=== PATIENT | female | born 1990 | race Caucasian/White ===

== ENCOUNTER 2016-12-14 21:22 | Emergency (ER) | payer SELFPAY ==
[~2016-12-14] VITALS: Ht 152.4 cm; Wt 95.0 kg
[~2016-12-14 21:22] MED LIST: ETON1IMP2 INTRAD
[2016-12-14 21:31] VITALS: TEMP 36.6; Ht 152.4 cm; Wt 95.0 kg
[2016-12-14] MEDS ORDERED: NAPROXEN 250 MG TAB PO STA (21:39)
[2016-12-14] MEDS ORDERED: CLB/200 PO (21:46)
[2016-12-14] MEDS ORDERED: LEVOIUD INT UTER (21:49)
--- NOTE | 2016-12-14 22:12 | DIAGNOSTIC IMAGING REPORT ---
LEFT KNEE 3 VIEWS CLINICAL HISTORY: anterior pain pain COMPARISON: None. DISCUSSION: The bones and joint spaces appear intact. There is no evidence of fracture, dislocation or bony disease. There is no evidence for soft tissue swelling. IMPRESSION: Negative study. Electronically signed by: Keith Arciniega M.D. 12/14/2016 10:10 PM Dictated Date/Time: 12/14/2016 10:10 PM
[2016-12-14] MEDS ORDERED: NAPR-1169 PO (22:41)
--- NOTE | 2016-12-14 22:41 | EMERGENCY ROOM VISIT NOTE ---
ED Visit Note First contact with patient: 21:36 Chief Complaint: LEFT Knee Pain History of Present Illness: This patient is a 26-year-old female who presents to the emergency Department for evaluation of her LEFT-sided knee pain. She reports that she was moving a love seat tonight when she felt a "pop" in her knee. She reports that she was doing fine until she stood up to change her child and felt an decreasing pain behind the knee. She has increasing pain with ambulation. She reports increasing pain with a bleeding up-and-down steps. The patient reports a history of ligament injury of this affected knee in the past. She rates her current discomfort as an 8/10. She denies any associated hip pain, low back pain, ankle pain, or foot pain. Medications: Reviewed and discussed with the patient. Allergies: No known allergies. PMH: As above. SHx: Patient is a 26-year-old female who lives locally. ROS: All pertinent positive and negative review of systems are appropriately documented in the History of Present Illness. Physical Exam: VITAL SIGNS - Vital signs and nursing notes were reviewed. GENERAL - 26-year-old female appearing her stated age and in noticeable discomfort throughout the exam. MUSCULOSKELETAL - LEFT knee without erythema, edema, and ecchymosis. Subjective tenderness to palpation appreciated over the to the anterior surface of the LEFT knee. +4/5 strength appreciated LEFT versus right secondary to patient discomfort. No posterior sag sign. RANGE OF MOTION: Greater than 100 Flexion with 0 Extension. PATELLAR APPREHENSION TEST: Unremarkable. VARUS/VALGUS STRESS: Unremarkable. MARYURI'S TEST: Without guarding. Strong Endpoint. ANTERIOR/POSTERIOR DRAWER TEST: Without guarding. Strong endpoint. Aaron TEST: No catching, popping, or snapping. NEUROLOGIC/VASCULAR - Neurovascularly intact distally with +3/5 dorsalis pedis pulses palpated bilaterally. Normal sensation to light and sharp touch appreciated distally. IMAGING: LEFT KNEE 3 VIEWS CLINICAL HISTORY: anterior pain pain COMPARISON: None. DISCUSSION: The bones and joint spaces appear intact. There is no evidence of fracture, dislocation or bony disease. There is no evidence for soft tissue swelling. IMPRESSION: Negative study. ED Course: Patient was seen and evaluated by myself. Patient was provided an ice pack for comfort. Patient was provided Naproxen for their complaint of pain. X-rays were obtained of the affected knee. Imaging results as above. Images were discussed and reviewed with the patient who acknowledges understanding. Patient was provided Crutches for their comfort. Patient will utilize yvyu-lof-htxocrp medication for pain control at home. Patient educated on worrisome symptoms for return visit to the emergency department. Patient with follow-up with their primary care provided in 4-5 days if their symptoms are not improving. Patient discharged to home in good condition. Impression: LEFT Knee Pain - Patellofemoral Syndrome Discharge Instructions: You have been treated in the Emergency Department for Knee Pain. You have been prescribed Naprosyn (naproxen). This is an anti-inflammatory medication used to help decrease your symptoms and improve your pain. Please take this medication as prescribed. It is best to take this medication with food. Please to not take this antibiotic with other NSAIDS including: Ibuprofen , Advil, Motrin, Aspirin, Aleve, Celebrex, etc. For pain control, you can use the following ovey-tio-omwjwev medicines (if >12 yo): - Regular strength (325mg/tab) Tylenol (acetaminophen) 2 tabs every 4-6 hours as needed. Do not exceed 12 tablets in a 24 hour period. Avoid taking more than 4 grams (4000 mg) of Tylenol per day. This includes any other sources of acetaminophen you may take on a regular basis. If this is a recent injury (<24 hrs), ice can be applied to the area of pain for the first 3 days to help decrease pain and inflammation. Ice massages can be performed by freezing water in a paper cup, peeling back the cup to expose the ice and then massaging over the affected area. Use the crutches for comfort for the next 2-3 days until you're able to walk without a limp. Follow-up with your orthopedic surgeon if your symptoms are not improved over the next 4-5 days. Return to the Emergency Department if your current symptoms worsen despite treatment course outlined above. Problem List Medical Problems: (1) Cornea abrasion Status: Resolved (2) Pyelonephritis complicating , antepartum Status: Resolved Current/Historical Medications Scheduled Celecoxib (CeleBREX), 200 MG PO DAILY Levonorgestrel (Iud) (Mirena), 20 MCG INT UTER CONTINOUS Naproxen (Naprosyn), 500 MG PO BID Allergies Coded Allergies: No Known Allergies (Unverified , 11/13/15) Vital Signs Date Time Temp Pulse Resp B/P Pulse Ox O2 Delivery O2 Flow Rate FiO2 12/14/16 22:50 59 16 109/72 99 Room Air 12/14/16 21:31 36.6 69 18 147/82 98 Room Air Medications Administered Medications (Trade) Dose Ordered Sig/Tani Route Start Time Stop Time Status Last Admin Dose Admin Naproxen (Naprosyn Tab) 500 mg NOW STAT PO 12/14/16 21:39 12/14/16 21:40 DC 12/14/16 21:51 500 MG Departure Information Impression Primary Impression: Knee pain Additional Impression: Patellofemoral syndrome Dispostion Home / Self-Care Condition GOOD Prescriptions Naproxen (Naprosyn) 500 Mg Tab 500 MG PO BID for 10 Days, #20 TAB Prov: Vickey Arce, JACKY 12/14/16 Referrals Sofia Shelton P.A. (PCP) Patient Instructions My [facility] Additional Instructions You have been treated in the Emergency Department for Knee Pain. You have been prescribed Naprosyn (naproxen). This is an anti-inflammatory medication used to help decrease your symptoms and improve your pain. Please take this medication as prescribed. It is best to take this medication with food. Please to not take this antibiotic with other NSAIDS including: Ibuprofen , Advil, Motrin, Aspirin, Aleve, Celebrex, etc. For pain control, you can use the following gelq-kzs-nmsgzjk medicines (if >12 yo): - Regular strength (325mg/tab) Tylenol (acetaminophen) 2 tabs every 4-6 hours as needed. Do not exceed 12 tablets in a 24 hour period. Avoid taking more than 4 grams (4000 mg) of Tylenol per day. This includes any other sources of acetaminophen you may take on a regular basis. If this is a recent injury (<24 hrs), ice can be applied to the area of pain for the first 3 days to help decrease pain and inflammation. Ice massages can be performed by freezing water in a paper cup, peeling back the cup to expose the ice and then massaging over the affected area. Use the crutches for comfort for the next 2-3 days until you're able to walk without a limp. Follow-up with your orthopedic surgeon if your symptoms are not improved over the next 4-5 days. Return to the Emergency Department if your current symptoms worsen despite treatment course outlined above. Problem Qualifiers Primary Impression: Knee pain Laterality: left Chronicity: acute Qualified Codes: M25.562 - Pain in left knee Additional Impression: Patellofemoral syndrome Laterality: left Qualified Codes: M22.2X2 - Patellofemoral disorders, left knee
[2016-12-14 22:50] VITALS: BP 109/72; PULSE 59; O2SAT 99
== END 2016-12-14 22:59 | disposition home or self-care (01) ==
LOC: C.EDB 21:24 → C.EDD 22:59
DX: M25.562 Pain in left knee (principal); M22.2X2 Patellofemoral disorders, left knee

== ENCOUNTER 2017-03-19 20:58 | Emergency (ER) | payer SELFPAY ==
[~2017-03-19] VITALS: Ht 152.4 cm; Wt 82.0 kg
[~2017-03-19 20:58] MED LIST changes: +CLB/200 PO; -ETON1IMP2 INTRAD; +LEVOIUD INT UTER
[2017-03-19 21:01] VITALS: Ht 152.4 cm; Wt 82.0 kg
[2017-03-19] MEDS ORDERED: ACET-1256 PO (21:23)
[2017-03-19] MEDS ORDERED: OXYCODONE/ACETAMINOPHEN 5-325 TAB PO STA (21:31)
[2017-03-19] MEDS ORDERED: IBUPROFEN 600 MG TAB PO STA (21:31)
[2017-03-19] MEDS ORDERED: PERCOCET HOME PACK PO ONE (21:45)
--- NOTE | 2017-03-19 22:17 | EMERGENCY ROOM VISIT NOTE ---
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 She heard a pop. She felt excruciating pain afterwards. She is unable to bear weight on the leg. She took extra strength Tylenol with minimal relief. She denies any previous injury to this knee. REVIEW OF SYSTEMS: A 6 system review of systems was completed with positives and pertinent negatives listed in the HPI. ALLERGIES: No known drug allergies MEDICATIONS: Medication list reviewed with patient PMH: Otherwise healthy SOCIAL HISTORY: She does not smoke. Denies alcohol and illicit drug use. PHYSICAL EXAM: Vital Signs: Reviewed Nurse's notes, vital signs stable. GENERAL : 26-year-old female, no acute distress, but appears in pain, well-developed, well-nourished. MENTAL STATUS: Alert, oriented to person place and time, and cooperative. MUSCULOSKELETAL: The right knee is mildly swollen. There is no ecchymosis. There is a joint effusion present. The patient is tender to palpation over the medial aspect of the knee. There is no joint line tenderness. The patella not subluxate. Range of motion is limited secondary to pain. Strength of the quads and hamstrings is 5/5. Shannon's and Anterior Drawer tests are negative. There is severe pain with varus and valgus stressing. The foot and toes are warm and well-perfused. Dorsalis pedis pulse 2+. Sensation to pain and light touch is intact. Capillary refill less than 2 seconds. EMERGENCY DEPARTMENT COURSE: I examined the patient. She was given Percocet for pain. X-rays of the right knee were reviewed Patient: DEIDRA STARR Address1: [address] [place] [address] Rec: [id number] Address2: [facility] ID: [id number] [facility] Zip: [place] [address] Date: 1990 Sex: F Room/Bed: Ref Phy: Sofia Shelton,P.A. SC: THALIA Att Phy: Report #: [id number] Mariela Phy: Sofia SheltonP.ARukhsana Test: KN3 Admit Phy: Circular Distributor: HEATH Interpreting Phy: Keith Arciniega M.D. Diagnosis: R KNEE PAIN Ordering Phy: uJlieta Neumann PA-C Service Date: 03/19/17 Admit Date: 03/19/17 MNE: [id number] CONF: DICTATED BY: Keith Arciniega M.D.]] CC: Ronal Handy, Sofia Virgen P.A. Urban, Angela P., PA-C Endcc: [~ rep ct add3]] RIGHT KNEE 3 VIEWS CLINICAL HISTORY: r knee pain Right pain COMPARISON: None. DISCUSSION: The bones and joint spaces appear intact. There is no evidence of fracture, dislocation or bony disease. There is no evidence for soft tissue swelling. IMPRESSION: Negative study. The above report was generated using voice recognition software. It may contain grammatical, syntax or spelling errors. Electronically signed by: Keith Arciniega M.D. 03/19/2017 10:18 PM Dictated Date/Time: 03/19/2017 10:18 PM The status of this report is Signed. Draft = Not yet reviewed or approved by Radiologist. Signed = Reviewed and approved by Radiologist. <AttendingPhy></AttendingPhy> <FamilyPhy>Sofia SheltonPCindi</FamilyPhy> < PrimaryPhy>Sofia Shelton P.A.</PrimaryPhy> <UnitNumber>[id number]</UnitNumber > <VisitNumber>[id number]</VisitNumber> <PatientName>DEIDRA STARR</ PatientName> <DateOfBirth>1990</DateOfBirth> <Location>[facility]</Location> < ServiceDate>03/19/17</ServiceDate> <MNE>ESINDI</MNE> <OrderingPhy>Julieta Neumann PA-C</OrderingPhy> <OrderingPhyMNE>f rep ord mne</OrderingPhyMNE> < DictatingPhyMNE>f rep dict mne</DictatingPhyMNE> <CCListMNE>f rep ct mne</ CCListMNE> <AdmittingPhyMNE>f pt admit dr brown</AdmittingPhyMNE> <AttendingPhyMNE >f pt attend dr brown</AttendingPhyMNE> <ConsultingPhyMNE>f pt consult dr brown</ConsultingPhyMNE> <FamilyPhyMNE>f pt fam dr brown</FamilyPhyMNE> <OtherPhyMNE>f pt other dr brown</OtherPhyMNE> < PrimaryPhyMNE>f pt prim care dr brown</PrimaryPhyMNE> <ReferringPhyMNE>f pt referring dr brown</ReferringPhyMNE> The patient was placed in a knee immobilizer under my direction and the position was satisfactory. The patient was instructed on the use of crutches. The patient was discharged home in good condition. DIAGNOSIS: Right knee sprain DISCHARGE INSTRUCTIONS: Ice and elevate knee for swelling and pain. Wear knee immobilizer when up and about. Use crutches - minimal weight on foot. Ibuprofen 800 mg and/or Tylenol 1000 mg every 8 hours. You may also alternate these medications for more effective pain relief: Ibuprofen --4 HRS--> Tylenol --4 HRS--> ibuprofen --4 HRS--> Tylenol .... Please follow up with the orthopedic doctor if there is no improvement within the next 5-7 days Return to the emergency department with any new or worsening symptoms such as severe pain
[2017-03-19] MEDS ORDERED: OXYC-57 PO (22:18)
--- NOTE | 2017-03-19 22:20 | DIAGNOSTIC IMAGING REPORT ---
RIGHT KNEE 3 VIEWS CLINICAL HISTORY: r knee pain Right pain COMPARISON: None. DISCUSSION: The bones and joint spaces appear intact. There is no evidence of fracture, dislocation or bony disease. There is no evidence for soft tissue swelling. IMPRESSION: Negative study. The above report was generated using voice recognition software. It may contain grammatical, syntax or spelling errors. Electronically signed by: Keith Arciniega M.D. 03/19/2017 10:18 PM Dictated Date/Time: 03/19/2017 10:18 PM
[2017-03-19 22:48] VITALS: BP 101/66; PULSE 71; TEMP 36.9; O2SAT 96
== END 2017-03-19 22:48 | disposition home or self-care (01) ==
LOC: C.EDB 20:58 → C.EDD 22:48
DX: S83.91XA Sprain of unspecified site of right knee, initial encounter (principal); X50.1XXA Overexertion from prolonged static or awkward postures, initial encounter; Y93.F9 Activity, other caregiving; Y99.0 Civilian activity done for income or pay

== ENCOUNTER 2017-05-10 23:13 | Emergency (ER) | payer SELFPAY ==
[~2017-05-10] VITALS: Ht 157.5 cm; Wt 101.1 kg
[~2017-05-10 23:13] MED LIST changes: +ACET-1256 PO; +OXYC-57 PO
[2017-05-10 23:21] VITALS: TEMP 36.5; Ht 157.5 cm; Wt 101.1 kg
[2017-05-10] MEDS ORDERED: SODIUM CHLORIDE 0.9% 1000ML 1,000 ML IV STA ×2 (23:28)
[2017-05-10] MEDS ORDERED: ONDANSETRON INJ 2 MG/ML 2 ML VIAL IV STA (23:28)
[2017-05-10 23:41] VITALS: O2SAT 97
[2017-05-10] MEDS ORDERED: OPTIRAY 320 IV PRN (23:45)
[2017-05-10 23:53] LABS: BASO % 0.4 %; BASO ABS # 0.05 K/uL (0-0.2); COMPLETE YES; EOS % 1.9 %; IG% 0.4 %; LYMPH % 25.1 %; LYMPH ABS # 3.42 K/uL (1.2-3.4); MEAN CELL VOLUME 91.7 fL (80-100); MEAN CORPUSCULAR HEMOGLOBIN 31.7 pg (25-34); MEAN CORPUSCULAR HGB CONC 34.5 g/dl (32-36); MEAN PLATELET VOLUME 9.8 fL (7.4-10.4); MONO % 8.7 %; NEUT % 63.5 %; PLATELET COUNT 359 K/uL (130-400); RED BLOOD COUNT 4.58 M/uL (4.2-5.4); WHITE BLOOD COUNT 13.61 K/uL (4.8-10.8)
[2017-05-10 23:58] LABS: URINE APPEARANCE CLEAR (CLEAR); URINE BILIRUBIN NEG (NEG); URINE COLOR YELLOW; URINE EPITHELIAL CELL AUTO >30 /lpf (0-5); URINE NITRITE NEG (NEG); URINE PH 6.5 (4.5-7.5); URINE SPECIFIC GRAVITY 1.014 (1.000-1.030); UROBILINOGEN NEG (NEG); ZZUR CULT IF INDIC CLEAN CATCH NO
[2017-05-11] LABS: MANUAL MICROSCOPIC REQUIRED? NO; REVIEW REQ? YES
[2017-05-11 00:20] LABS: ALKALINE PHOSPHATASE 72 U/L (45-117); ALT/SGPT 20 U/L (12-78); AST/SGOT 18 U/L (15-37); BLOOD UREA NITROGEN 8 mg/dl (7-18); BUN/CREATININE RATIO 9.9 (10-20); CALCIUM 9.6 mg/dl (8.5-10.1); CARBON DIOXIDE 29 mmol/L (21-32); CHLORIDE 106 mmol/L (98-107); CREATININE 0.85 mg/dl (0.60-1.20); GLUCOSE 86 mg/dl (70-99); POTASSIUM 3.8 mmol/L (3.5-5.1); SODIUM 140 mmol/L (136-145)
[2017-05-11 00:22] LABS: PREG INTERNAL NEGATIVE QC NEG CLEAR BACKGROUND; PREG INTERNAL POSITIVE QC POS CONTROL LINE
[2017-05-11] MEDS ORDERED: METOCLOPRAMIDE HCL INJ 5 MG/ML 2 ML VIAL IV STA (03:36)
[2017-05-11] MEDS ORDERED: DiphenhydrAMINE HCL 50 MG/ML VIAL IV STA (03:36)
[2017-05-11] MEDS ORDERED: KETOROLAC TROMETHAMINE 30 MG/ML VIAL IV STA (03:36)
[2017-05-11 06:00] VITALS: BP 115/50; PULSE 55; O2SAT 96
[2017-05-11] MEDS ORDERED: ONDANSETRON HOME PACK 4MG OD TAB PO ONE (06:15)
--- NOTE | 2017-05-11 06:20 | EMERGENCY ROOM VISIT NOTE ---
History First contact with patient: 23:26 Chief Complaint: ABDOMINAL PAIN Stated Complaint: RT LOWER ABDOMEN PAIN History of Present Illness The patient is a 27 year old female who presents to the Emergency Room with complaints of right lower quadrant right flank pain for the past 3 days that is steadily getting worse currently 6 out of 10. Described as aching. Nothing makes it better or worse. No history of similar symptoms in the past. Patient has an IUD. Patient denies chest pain, dyspnea, nausea, vomiting, diarrhea, urinary symptoms, vaginal itching or discharge. She does not feel at risk for STI's. No history kidney stones. Review of Systems See HPI for pertinent positives & negatives. A total of 10 systems reviewed and were otherwise negative. Past Medical/Surgical History Medical Problems: (1) Cornea abrasion (2) Pyelonephritis complicating , antepartum Family History FH: HTN (hypertension) FH: cancer FH: diabetes mellitus FH: kidney disease FH: seizures Social History Smoking Status: Never Smoker Drug Use: none Marital Status: single Housing Status: lives with family Occupation Status: employed Current/Historical Medications Scheduled Levonorgestrel (Iud) (Mirena), 20 MCG INT UTER CONTINOUS Physical Exam Vital Signs Date Time Temp Pulse Resp B/P (MAP) Pulse Ox O2 Delivery O2 Flow Rate FiO2 05/11/17 06:00 55 20 115/50 96 Room Air 05/11/17 03:46 52 20 113/64 97 Room Air 05/11/17 03:26 55 05/11/17 02:12 55 20 121/74 96 Room Air 05/11/17 00:48 54 20 121/73 96 Room Air 05/10/17 23:53 69 05/10/17 23:41 97 Room Air 05/10/17 23:21 36.5 59 18 123/84 93 Room Air Physical Exam VITALS: Vitals are noted on the nurse's note and reviewed by myself. Vital signs stable. GENERAL: Pleasant female, in no acute distress, nondiaphoretic, well-developed well-nourished. SKIN: The skin was without rashes, erythema, edema, or bruising. There is no tenting of the skin. Capillary reflex less than 2 seconds. HEAD: Normocephalic atraumatic. EARS: External auditory canals clear, tympanic membranes pearly odom without erythema or effusion bilaterally. EYES: Pupils equal round and reactive to light and accommodation. Conjunctivae without injection, sclerae without icterus. Extraocular movements intact. NOSE: Patent, turbinates without inflammation or discharge. MOUTH: Mucous membranes moist. Pharynx without erythema or exudate. Uvula midline. Airway patent. Tongue does not deviate. NECK: Supple without nuchal rigidity. No lymphadenopathy. No thyromegaly. Cervical spine is nontender. No JVD. HEART: Regular rate and rhythm without murmurs gallops or rubs. LUNGS: Clear to auscultation bilaterally without wheezes, rales or rhonchi. No dullness to percussion. No retractions or accessory muscle use. ABDOMEN: Positive bowel sounds x 4. Normal tympanic percussion. Soft, tender to palpation right lower quadrant, right CVA tenderness,, without masses or organomegaly. Samaniego sign negative. No guarding or rebound tenderness. MUSCULOSKELETAL: No muscle atrophy, erythema, or edema noted. NEURO: Patient was alert and oriented to person place and time. Normal sensation to light and sharp touch. No focal neurological deficits. Medical Decision & Procedures Laboratory Results 05/10/17 23:35 Red Blood Count 4.58, Mean Corpuscular Volume 91.7, Mean Corpuscular Hemoglobin 31.7, Mean Corpuscular Hemoglobin Concent 34.5, Mean Platelet Volume 9.8, Neutrophils (%) (Auto) 63.5, Lymphocytes (%) (Auto) 25.1, Monocytes (%) (Auto) 8.7, Eosinophils (%) (Auto) 1.9, Basophils (%) (Auto) 0.4, Neutrophils # (Auto) 8.64, Lymphocytes # (Auto) 3.42, Monocytes # (Auto) 1.18, Eosinophils # (Auto) 0.26, Basophils # (Auto) 0.05 05/10/17 23:35 Test 05/10/17 23:35 White Blood Count 13.61 K/uL (4.8-10.8) Red Blood Count 4.58 M/uL (4.2-5.4) Hemoglobin 14.5 g/dL (12.0-16.0) Hematocrit 42.0 % (37-47) Mean Corpuscular Volume 91.7 fL (80-100) Mean Corpuscular Hemoglobin 31.7 pg (25-34) Mean Corpuscular Hemoglobin Concent 34.5 g/dl (32-36) Platelet Count 359 K/uL (130-400) Mean Platelet Volume 9.8 fL (7.4-10.4) Neutrophils (%) (Auto) 63.5 % Lymphocytes (%) (Auto) 25.1 % Monocytes (%) (Auto) 8.7 % Eosinophils (%) (Auto) 1.9 % Basophils (%) (Auto) 0.4 % Neutrophils # (Auto) 8.64 K/uL (1.4-6.5) Lymphocytes # (Auto) 3.42 K/uL (1.2-3.4) Monocytes # (Auto) 1.18 K/uL (0.11-0.59) Eosinophils # (Auto) 0.26 K/uL (0-0.5) Basophils # (Auto) 0.05 K/uL (0-0.2) RDW Standard Deviation 43.8 fL (36.4-46.3) RDW Coefficient of Variation 13.0 % (11.5-14.5) Immature Granulocyte % (Auto) 0.4 % Immature Granulocyte # (Auto) 0.06 K/uL (0.00-0.02) Urine Color YELLOW Urine Appearance CLEAR (CLEAR) Urine pH 6.5 (4.5-7.5) Urine Specific Irwin 1.014 (1.000-1.030) Urine Protein NEG (NEG) Urine Glucose (UA) NEG (NEG) Urine Ketones NEG (NEG) Urine Occult Blood 1+ (NEG) Urine Nitrite NEG (NEG) Urine Bilirubin NEG (NEG) Urine Urobilinogen NEG (NEG) Urine Leukocyte Esterase NEG (NEG) Urine WBC (Auto) 1-5 /hpf (0-5) Urine RBC (Auto) 5-10 /hpf (0-4) Urine Hyaline Casts (Auto) 0 /lpf (0-5) Urine Epithelial Cells (Auto) >30 /lpf (0-5) Urine Bacteria (Auto) NEG (NEG) Anion Gap 5.0 mmol/L (3-11) Est Creatinine Clear Calc Drug Dose 112.6 ml/min Estimated GFR () 110.4 Estimated GFR (Non- 95.2 BUN/Creatinine Ratio 9.9 (10-20) Calcium Level 9.6 mg/dl (8.5-10.1) Total Bilirubin 0.3 mg/dl (0.2-1) Direct Bilirubin mg/dl (0-0.2) Aspartate Amino Transf (AST/SGOT) 18 U/L (15-37) Alanine Aminotransferase (ALT/SGPT) 20 U/L (12-78) Alkaline Phosphatase 72 U/L (45-117) Total Protein 7.5 gm/dl (6.4-8.2) Albumin 3.6 gm/dl (3.4-5.0) Human Chorionic Gonadotropin, Qual NEG (NEG) Chemistry Specimen Hemolysis Medications Administered Medications (Trade) Dose Ordered Sig/Tani Route Start Time Stop Time Status Last Admin Dose Admin Sodium Chloride 1,000 ml @ 999 mls/hr Q1H1M STAT IV 05/10/17 23:28 05/11/17 00:28 DC 05/10/17 23:38 999 MLS/HR Sodium Chloride 1,000 ml @ 125 mls/hr Q8H STAT IV 05/10/17 23:28 05/11/17 07:27 05/10/17 23:38 125 MLS/HR Ondansetron HCl (Zofran Inj) 4 mg NOW STAT IV 05/10/17 23:28 05/10/17 23:29 DC 05/10/17 23:38 4 MG Ketorolac Tromethamine (Toradol Inj) 30 mg NOW STAT IV 05/11/17 03:36 05/11/17 03:38 DC 05/11/17 03:44 30 MG Metoclopramide HCl (Reglan Inj) 10 mg NOW STAT IV 05/11/17 03:36 05/11/17 03:38 DC 05/11/17 03:44 10 MG Diphenhydramine HCl (Benadryl Inj) 12.5 mg NOW STAT IV 05/11/17 03:36 05/11/17 03:38 DC 05/11/17 03:44 12.5 MG ED Course Prior records/ancillary studies reviewed. Triage Nursing notes reviewed. Additional history obtained from family. The patient's history was concerning for abdominal pain. Differential diagnosis: Etiologies such as appendicitis, diverticulitis, PUD, biliary pathology, UTI, pancreatitis, obstruction, mesenteric ischemia, aortic pathology, infections, inflammatory bowel disease, renal colic, as well as others were entertained. Physical examination findings: As above. ER treatment provided: Zofran, morphine, IV fluids On reassessment the patient felt better. Diagnostics interpreted by me: The labs revealed leukocytosis. Negative hCG. Negative urine Imaging studies: US PELVIC/ENDOVAG: IUD in place. No evidence of torsion. 3.6 cm right ovarian cyst. Radiologist: Paul Prescott M.D. CT was concerning for right ovarian cyst so ultrasound was ordered to verify blood flow and rule out torsion Exam and history seem consistent with right ovarian cyst. No torsion on ultrasound. Patient was advised to follow-up with OB in a few days and repeat pelvic ultrasound in 6 weeks for resolution of cyst. She is advised to return to the ER immediately for severe pain, vomiting, fevers, worsening signs or symptoms or as needed. Patient was neurovascularly and neurologically intact. She is well-appearing. No signs of UTI. By the evaluation outlined above emergent etiologies such as appendicitis, diverticulitis, PUD, biliary pathology, UTI, pancreatitis, obstruction, mesenteric ischemia, aortic pathology, infections, inflammatory bowel disease, renal colic, as well as others were deemed relatively unlikely. The pt informed about the findings as listed above. All questions were answered and pleased with the treatment. Return instructions were outlined and the patient was discharged in stable condition. Referral: The patient was referred back to their primary care physician and [facility] [employer] [facility] for follow-up in 2 to 3 days for a recheck of the current condition. case reviewed with my Attending. Medical Decision As above Medication Reconcilliation Current Medication List: was personally reviewed by me Blood Pressure Screening Patient's blood pressure: Normal blood pressure Impression Primary Impression: Right ovarian cyst Departure Information Dispostion Home / Self-Care Condition GOOD Referrals Sofia Shelton,P.A. (PCP) Patient Instructions My [facility] Additional Instructions DO NOT drive, drink alcohol, operate machinery, or perform dangerous activities today. You were given medications in the ER that can affect your ability to safely function or operate a vehicle. Repeat pelvic ultrasound in 6 weeks for resolution of cyst. Ibuprofen(Motrin, Advil) may be used for fever or pain. Use 600mg every six hours as needed. Take with food. Avoid using more than 2400mg in a 24 hour period. Do not use 2400mg per day for more than three consecutive days without physician direction. Prolonged inappropriate use can lead to stomach upset or ulcers. (AND/OR) Acetaminophen(Tylenol) may be used for fever or pain. Use 1000mg every six hours as needed. Avoid using more than 4000mg in a 24 hour period. Zofran 4mg: Take one every six hours as needed for nausea. Avoid alcohol, operating machinery or dangerous equipment, working on ladders or roofs, DRIVING , or situations where being under the influence may be dangerous. Rest and drink plenty of fluids as tolerated. Slow sips of water or sports drinks are recommended instead of large amounts all at once. Continue current medications. Return to the ER immediately for worsening or persistent abdominal pain, vomiting, fevers, chest pains, difficulty breathing, black or bloody stools, worsening of your condition, or as needed. Follow up with [facility] in 2-3 days for a recheck of your current condition.
--- NOTE | 2017-05-11 07:20 | DIAGNOSTIC IMAGING REPORT ---
CT OF THE ABDOMEN AND PELVIS WITH CONTRAST CLINICAL HISTORY: Right lower quadrant/right flank pain. COMPARISON STUDY: CT of the abdomen and pelvis and pelvic ultrasound September 13, 2015. TECHNIQUE: Following IV administration of 92 mL of Optiray-320, axial images of the abdomen and pelvis were obtained from the lung bases to the proximal femurs. Images were reviewed in the axial, sagittal, and coronal planes. IV contrast was administered without complication. A dose lowering technique was utilized adhering to the principles of ALARA. CT DOSE: 1017.87 mGy.cm FINDINGS: The liver, spleen, adrenal glands, kidneys and pancreas are normal. There is no biliary or pancreatic ductal dilatation. Caliber and wall thickness of small and large bowel are normal. The appendix is normal. A 4.4 cm water attenuation right ovarian lesion likely reflects a cyst. Intrauterine device is in place. There is no free fluid. There is no abscess or adenopathy. No suspicious skeletal lesions are present. Major vasculature of the abdomen and pelvis is patent. IMPRESSION: 1. Normal appendix. No bowel obstruction. 2. 4.4 cm right ovarian cyst. 3. Intrauterine device in place. Electronically signed by: Carlos Lange M.D. 05/11/2017 7:19 AM Dictated Date/Time: 05/11/2017 7:15 AM
--- NOTE | 2017-05-11 07:22 | DIAGNOSTIC IMAGING REPORT ---
PELVIC ULTRASOUND CLINICAL HISTORY: Ovarian cyst on ultrasound. Right lower quadrant pain. COMPARISON STUDY: Pelvic ultrasound September 13, [address] of the abdomen and pelvis May 11, 2017. TECHNIQUE: Transabdominal and transvaginal sonography of the pelvis was performed. FINDINGS: Intrauterine device is appropriately positioned. Uterus measures 10 x 4.2 x 5.4 cm. There is trace fluid within the endometrial canal. Endometrium measures 4 mm in thickness. The left ovary is normal, measuring 2.5 x 1.6 x 2.5 cm. The right ovary measures 4.4 x 3.7 x 3.9 cm and contains a 3.6 cm cyst. Flow is identified within each ovary. IMPRESSION: 1. 3.6 cm right ovarian cyst. 2. No sonographic evidence of ovarian torsion. 3. Intrauterine device in place. Electronically signed by: Carlos Lange M.D. 05/11/2017 7:21 AM Dictated Date/Time: 05/11/2017 7:19 AM
== END 2017-05-11 06:28 | disposition home or self-care (01) ==
LOC: C.EDB 23:13
DX: N83.201 Unspecified ovarian cyst, right side (principal); Z87.440 Personal history of urinary (tract) infections; Z79.899 Other long term (current) drug therapy; Z80.9 Family history of malignant neoplasm, unspecified; Z82.49 Family history of ischemic heart disease and other diseases of the circulatory system; Z83.3 Family history of diabetes mellitus; Z84.1 Family history of disorders of kidney and ureter; Z82.0 Family history of epilepsy and other diseases of the nervous system

== ENCOUNTER 2017-08-01 17:47 | Emergency (ER) | payer SELFPAY ==
[~2017-08-01] VITALS: Ht 152.4 cm; Wt 97.8 kg
[~2017-08-01 17:47] MED LIST changes: -ACET-1256 PO; -CLB/200 PO; -OXYC-57 PO
[2017-08-01 17:49] VITALS: TEMP 37.1; Ht 152.4 cm; Wt 97.8 kg
[2017-08-01] MEDS ORDERED: ONDANSETRON INJ 2 MG/ML 2 ML VIAL IV STA ×2 (17:56→22:30)
[2017-08-01] MEDS ORDERED: CLB/200 PO (18:02)
--- NOTE | 2017-08-01 18:17 | EMERGENCY ROOM VISIT NOTE ---
History Report prepared by Levy: Ana Hillman Under the Supervision of: Stepan DudleyO. First contact with patient: 17:53 Chief Complaint: ABDOMINAL PAIN Stated Complaint: RIGHT SIDE ABD PAIN, VOMITING History of Present Illness The patient is a 27 year old female who presents to the Emergency Room with complaints of a worsening right lower abdominal pain that began at 0230 this morning. She describes her pain as "sharp" and rates it a 9/10 in severity. The patient states that she is also having some lower back pain. She denies any vomiting, diarrhea, fever, painful bowel movements, or taking any pain medication [employer]. The patient also denies any vaginal bleeding or abnormal discharge. The patient notes that she has a history of an ovarian cyst, but denies any history of ovarian torsions. She states her last normal menstrual period was last month. The patient notes that she is on control. She notes she has arthritis in both knees and takes Celebrex daily. Source of History: patient Onset: 0230 Position: abdomen (RLQ) Symptom Intensity: 9/10 Timing: worsening Associated Symptoms: No fevers, No vomiting, No diarrhea Note: The patient also denies any abnormal vaginal bleeding or discharge. Review of Systems See HPI for pertinent positives & negatives. A total of 10 systems reviewed and were otherwise negative. Past Medical & Surgical Medical Problems: (1) Arthritis of both knees (2) Cornea abrasion (3) Pyelonephritis complicating , antepartum Family History FH: HTN (hypertension) FH: cancer FH: diabetes mellitus FH: kidney disease FH: seizures Social History Smoking Status: Never Smoker Drug Use: none Marital Status: single Housing Status: lives with family Occupation Status: employed Current/Historical Medications Scheduled Celecoxib (CeleBREX), 200 MG PO BID Levonorgestrel (Iud) (Mirena), 20 MCG INT UTER CONTINOUS Scheduled PRN Oxycodone Immediate Rel Tab (Roxicodone Ir), 1-2 TAB PO Q4H PRN for Severe Pain Allergies Coded Allergies: No Known Allergies (Unverified , 05/11/17) Physical Exam Vital Signs Date Time Temp Pulse Resp B/P (MAP) Pulse Ox O2 Delivery O2 Flow Rate FiO2 08/02/17 00:27 60 16 106/57 98 Room Air 08/01/17 22:43 60 20 147/93 97 Room Air 08/01/17 22:17 76 08/01/17 21:48 80 20 118/77 97 Room Air 08/01/17 19:52 72 22 142/50 97 08/01/17 19:33 67 08/01/17 18:58 79 20 111/70 96 Room Air 08/01/17 17:49 37.1 65 20 114/76 94 Room Air Physical Exam GENERAL: Patient is awake, alert, somewhat anxious appearing and uncomfortable. EYES: The conjunctivae are clear. The pupils are round and reactive. EARS, NOSE, MOUTH AND THROAT: The nose is without any evidence of any deformity. Mucous membranes are moist tongue is midline NECK: The neck is nontender and supple. RESPIRATORY: Normal respiratory effort is noted there is no evidence of wheezing rhonchi or rales CARDIOVASCULAR: Regular rate and rhythm noted there no murmurs rubs or gallops normal S1 normal S2 GASTROINTESTINAL: Mildly distended but soft. Right lower quadrant tender to palpitation. PELVIS: The Pelvis is stable. No tenderness to palpation is noted. BACK: CVA tenderness to percussion. No midline tenderness or or step-off noted range of motion in flexion extension as well as rotation no signs of muscle spasm noted MUSCULOSKELETAL/EXTREMITIES: There is no evidence of gross deformity full range of motion is noted in the hips and shoulders SKIN: There is no obvious evidence of any rash. There are no petechiae, pallor or cyanosis noted. NEUROLOGIC: Patient is awake alert and oriented x3 Medical Decision & Procedures ER Provider Diagnostic Interpretation: Radiology results as stated below per my review and radiologist interpretation: ABDOMEN AND PELVIS CT WITHOUT CONTRAST CT DOSE: 880.22 mGy.cm HISTORY: right flank pain TECHNIQUE: Multiaxial CT images of the abdomen and pelvis were performed without contrast. A dose lowering technique was utilized adhering to the principles of ALARA. COMPARISON STUDY: Abdomen and pelvis CT 05/11/2017. Pelvic ultrasound 05/11/2017. FINDINGS: The lung bases are clear. No fractures within the visualized osseous structures. The unenhanced liver, gallbladder, pancreas, spleen, adrenal glands, and kidneys are unremarkable. No renal or ureteral stones. No hydronephrosis. No retroperitoneal lymphadenopathy. The intrauterine device is in good position. Normal left ovary. Slight increase in size in the 4.2 x 3.5 cm. This previous measured 3.9 x 3.2 cm. Bladder is not well-distended but appears unremarkable. Suboptimal evaluation for bowel pathology due to the lack of intravenous and oral contrast. However, there is no definite bowel wall thickening or obstruction. Normal appendix. Colonic diverticulosis. IMPRESSION: 1. No definite bowel wall thickening or obstruction. 2. Normal appendix. 3. No renal or ureteral stones. 4. Slight increase in size in the 4.2 cm right ovarian cyst. This is better appreciated on the recent pelvic ultrasound. Electronically signed by: Bandar Gaffney M.D. 08/01/2017 7:14 PM Laboratory Results 08/01/17 18:15 Red Blood Count 4.79, Mean Corpuscular Volume 93.7, Mean Corpuscular Hemoglobin 31.3, Mean Corpuscular Hemoglobin Concent 33.4, Mean Platelet Volume 9.8, Neutrophils (%) (Auto) 70.6, Lymphocytes (%) (Auto) 20.1, Monocytes (%) (Auto) 6.9, Eosinophils (%) (Auto) 1.7, Basophils (%) (Auto) 0.3, Neutrophils # (Auto) 11.48, Lymphocytes # (Auto) 3.26, Monocytes # (Auto) 1.12, Eosinophils # (Auto) 0.27, Basophils # (Auto) 0.05 08/01/17 18:15 Test 08/01/17 18:15 White Blood Count 16.24 K/uL (4.8-10.8) Red Blood Count 4.79 M/uL (4.2-5.4) Hemoglobin 15.0 g/dL (12.0-16.0) Hematocrit 44.9 % (37-47) Mean Corpuscular Volume 93.7 fL (80-100) Mean Corpuscular Hemoglobin 31.3 pg (25-34) Mean Corpuscular Hemoglobin Concent 33.4 g/dl (32-36) Platelet Count 380 K/uL (130-400) Mean Platelet Volume 9.8 fL (7.4-10.4) Neutrophils (%) (Auto) 70.6 % Lymphocytes (%) (Auto) 20.1 % Monocytes (%) (Auto) 6.9 % Eosinophils (%) (Auto) 1.7 % Basophils (%) (Auto) 0.3 % Neutrophils # (Auto) 11.48 K/uL (1.4-6.5) Lymphocytes # (Auto) 3.26 K/uL (1.2-3.4) Monocytes # (Auto) 1.12 K/uL (0.11-0.59) Eosinophils # (Auto) 0.27 K/uL (0-0.5) Basophils # (Auto) 0.05 K/uL (0-0.2) RDW Standard Deviation 44.9 fL (36.4-46.3) RDW Coefficient of Variation 13.1 % (11.5-14.5) Immature Granulocyte % (Auto) 0.4 % Immature Granulocyte # (Auto) 0.06 K/uL (0.00-0.02) Urine Color YELLOW Urine Appearance CLEAR (CLEAR) Urine pH 5.0 (4.5-7.5) Urine Specific Ione 1.022 (1.000-1.030) Urine Protein NEG (NEG) Urine Glucose (UA) NEG (NEG) Urine Ketones TRACE (NEG) Urine Occult Blood 2+ (NEG) Urine Nitrite NEG (NEG) Urine Bilirubin NEG (NEG) Urine Urobilinogen NEG (NEG) Urine Leukocyte Esterase SMALL (NEG) Urine WBC (Auto) 10-30 /hpf (0-5) Urine RBC (Auto) 0-4 /hpf (0-4) Urine Hyaline Casts (Auto) 0 /lpf (0-5) Urine Epithelial Cells (Auto) >30 /lpf (0-5) Urine Bacteria (Auto) 1+ (NEG) Urine Crystals CALCIUM OXALATE (NONE Urine Mucus PRESENT (NONE PRSENT) Anion Gap 9.0 mmol/L (3-11) Est Creatinine Clear Calc Drug Dose 121.9 ml/min Estimated GFR () 130.5 Estimated GFR (Non- 112.6 BUN/Creatinine Ratio 11.0 (10-20) Calcium Level 8.7 mg/dl (8.5-10.1) Total Bilirubin 0.4 mg/dl (0.2-1) Direct Bilirubin < 0.1 mg/dl (0-0.2) Aspartate Amino Transf (AST/SGOT) 13 U/L (15-37) Alanine Aminotransferase (ALT/SGPT) 20 U/L (12-78) Alkaline Phosphatase 61 U/L (45-117) Total Protein 7.9 gm/dl (6.4-8.2) Albumin 3.7 gm/dl (3.4-5.0) Lipase 155 U/L (73-393) Human Chorionic Gonadotropin, Qual NEG (NEG) Laboratory results per my review. Medications Administered Medications (Trade) Dose Ordered Sig/Tani Route Start Time Stop Time Status Last Admin Dose Admin Morphine Sulfate (MoRPHine SULFATE INJ) 4 mg Q15M PRN IV 08/01/17 18:00 08/02/17 00:55 DC 08/01/17 21:47 4 MG Ondansetron HCl (Zofran Inj) 4 mg NOW STAT IV 08/01/17 17:56 08/01/17 17:58 DC 08/01/17 18:43 4 MG Ondansetron HCl (Zofran Inj) 4 mg NOW STAT IV 08/01/17 22:30 08/01/17 22:31 DC 08/01/17 22:43 4 MG Sodium Chloride 1,000 ml @ 999 mls/hr Q1H1M STAT IV 08/01/17 23:21 08/02/17 00:21 DC 08/01/17 23:21 999 MLS/HR ED Course 1755: The patient was evaluated in room A12. A complete history and physical examination were performed. 1756: Ordered Zofran Inj 4mg IV. 1800: Ordered Morphine Sulfate 4mg IV. 5: I reevaluated the patient. She is resting comfortably and awaiting Ultrasound. 2030: This patient is a sign out to Dr. Hubbard at the end of my shift Medical Decision Prior records/ancillary studies reviewed. Triage Nursing notes reviewed. The patient's history was concerning for abdominal pain. Differential diagnosis: Etiologies such as appendicitis, diverticulitis, PUD, biliary pathology, UTI, pancreatitis, obstruction, mesenteric ischemia, aortic pathology, infections, inflammatory bowel disease, renal colic, as well as others were entertained. The patient is a 27-year-old female who presented to the emergency department for evaluation of right-sided pain. The patient had abdominal pain but also suprapubic pain. She had no dysuria or frequency. The urinalysis appeared to show increased white blood cells but I feel this is a poor specimen with increased epithelial cells as well as urinary mucous. I do not feel this represents an infection. The patient was found have an ovarian cyst. This was noted on previous studies in the fall. The cyst appears larger than previous. The patient was treated with IV pain medicine and IV antiemetics. On subsequent reevaluation she was feeling much better but because of the size of the cyst pathology may require an ultrasound to further evaluate the ovarian cyst further. At this time the ultrasound is still pending. The patient was signed out to the evening physician, Dr. Hubbard. Please see his note for final ultrasound report and final disposition. The patient was encouraged to follow- up with her [employer] physician this week. She knows that if the ultrasound does not show any surgical findings she will likely be discharged home to follow-up with the [employer] physician. She was also encouraged to continue using Motrin and Tylenol for pain and return to the emergency department if symptoms change worsen or the need arises. The patient was also made aware that if the ultrasound shows abnormalities which would require gynecologic surgery she would need this immediately. Medication Reconcilliation Current Medication List: was personally reviewed by me Blood Pressure Screening Patient's blood pressure: Normal blood pressure Blood pressure disposition: Did not require urgent referral Impression Primary Impression: Right ovarian cyst Additional Impression: RLQ abdominal pain Scribe Attestation The scribe's documentation has been prepared under my direction and personally reviewed by me in its entirety. I confirm that the note above accurately reflects all work, treatment, procedures, and medical decision making performed by me. Departure Information Dispostion Still a Patient (This patient is a sign out to Dr. Hubbard at the end of my shift) Prescriptions Oxycodone Immediate Rel Tab (ROXICODONE IR) 5 Mg Tab 1-2 TAB PO Q4H Y for Severe Pain, #24 TAB Prov: Ronal Handy, 08/01/17 Referrals Sofia Shelton,P.A. (PCP) Patient Instructions My [facility] Problem Qualifiers
[2017-08-01 18:30] LABS: BASO % 0.3 %; BASO ABS # 0.05 K/uL (0-0.2); COMPLETE YES; EOS % 1.7 %; HEMATOCRIT 44.9 % (37-47); IG% 0.4 %; LYMPH % 20.1 %; LYMPH ABS # 3.26 K/uL (1.2-3.4); MEAN CELL VOLUME 93.7 fL (80-100); MEAN CORPUSCULAR HEMOGLOBIN 31.3 pg (25-34); MEAN CORPUSCULAR HGB CONC 33.4 g/dl (32-36); MEAN PLATELET VOLUME 9.8 fL (7.4-10.4); MONO % 6.9 %; NEUT % 70.6 %; PLATELET COUNT 380 K/uL (130-400); RED BLOOD COUNT 4.79 M/uL (4.2-5.4); WHITE BLOOD COUNT 16.24 K/uL (4.8-10.8)
[2017-08-01] MEDS: MoRPHine SULFATE 4 MG/ML 1 ML CARP\\VIAL IV PRN ×2 (18:44→21:47)
[2017-08-01 18:47] LABS: ALT/SGPT 20 U/L (12-78); AST/SGOT 13 U/L (15-37); BLOOD UREA NITROGEN 8 mg/dl (7-18); CALCIUM 8.7 mg/dl (8.5-10.1); CARBON DIOXIDE 24 mmol/L (21-32); CHLORIDE 105 mmol/L (98-107); CREATININE 0.74 mg/dl (0.60-1.20); GLUCOSE 82 mg/dl (70-99); POTASSIUM 3.5 mmol/L (3.5-5.1); SODIUM 138 mmol/L (136-145)
[2017-08-01 18:50] LABS: ALKALINE PHOSPHATASE 61 U/L (45-117)
[2017-08-01 18:52] LABS: PREG INTERNAL NEGATIVE QC NEG CLEAR BACKGROUND; PREG INTERNAL POSITIVE QC POS CONTROL LINE
--- NOTE | 2017-08-01 19:15 | DIAGNOSTIC IMAGING REPORT ---
ABDOMEN AND PELVIS CT WITHOUT CONTRAST CT DOSE: 880.22 mGy.cm HISTORY: right flank pain TECHNIQUE: Multiaxial CT images of the abdomen and pelvis were performed without contrast. A dose lowering technique was utilized adhering to the principles of ALARA. COMPARISON STUDY: Abdomen and pelvis CT 05/11/2017. Pelvic ultrasound 05/11/2017. FINDINGS: The lung bases are clear. No fractures within the visualized osseous structures. The unenhanced liver, gallbladder, pancreas, spleen, adrenal glands, and kidneys are unremarkable. No renal or ureteral stones. No hydronephrosis. No retroperitoneal lymphadenopathy. The intrauterine device is in good position. Normal left ovary. Slight increase in size in the 4.2 x 3.5 cm. This previous measured 3.9 x 3.2 cm. Bladder is not well-distended but appears unremarkable. Suboptimal evaluation for bowel pathology due to the lack of intravenous and oral contrast. However, there is no definite bowel wall thickening or obstruction. Normal appendix. Colonic diverticulosis. IMPRESSION: 1. No definite bowel wall thickening or obstruction. 2. Normal appendix. 3. No renal or ureteral stones. 4. Slight increase in size in the 4.2 cm right ovarian cyst. This is better appreciated on the recent pelvic ultrasound. Electronically signed by: Bandar Gaffney M.D. 08/01/2017 7:14 PM Dictated Date/Time: 08/01/2017 7:04 PM
[2017-08-01 19:20] LABS: URINE APPEARANCE CLEAR (CLEAR); URINE BILIRUBIN NEG (NEG); URINE COLOR YELLOW; URINE EPITHELIAL CELL AUTO >30 /lpf (0-5); URINE NITRITE NEG (NEG); URINE SPECIFIC GRAVITY 1.022 (1.000-1.030); UROBILINOGEN NEG (NEG)
[2017-08-01 19:21] LABS: MANUAL MICROSCOPIC REQUIRED? NO; REVIEW REQ? YES
[2017-08-01 19:35] LABS: URINE MUCUS PRESENT (NONE PRSENT)
[2017-08-01] MEDS ORDERED: OXYC1TAB3 PO (19:46)
--- NOTE | 2017-08-01 22:08 | DIAGNOSTIC IMAGING REPORT ---
PELVIC ULTRASOUND, TRANSABDOMINAL AND TRANSVAGINAL HISTORY: right sided pelvic pain, ovarian cyst COMPARISON: Abdomen and pelvis CT 08/01/2017. Pelvic ultrasound 05/11/2017. FINDINGS: Uterus: 9.4 x 4.5 x 5.0 cm. Endometrial stripe: 7 mm in thickness. The intrauterine device is in good position. Right ovary: A 4.3 x 4.0 x 3.8 cm cyst. This previously measured 3.6 cm. Normal color flow within the right ovary. Left ovary: Normal in size and demonstrates normal color flow. Miscellaneous:No significant pelvic free fluid. IMPRESSION: 1. Slight increase in size in the 4.3 cm right ovarian cyst. This appears to represent a simple cyst. Pelvic ultrasound follow-up in 2-3 months is recommended to ensure resolution. 2. The intrauterine device is in good position. 3. Normal color flow within the bilateral ovaries. Electronically signed by: Bandar Gaffney M.D. 08/01/2017 10:06 PM Dictated Date/Time: 08/01/2017 10:03 PM
[2017-08-01] MEDS ORDERED: SODIUM CHLORIDE 0.9% 1000ML 1,000 ML IV STA (23:21)
--- NOTE | 2017-08-02 00:08 | EMERGENCY ROOM VISIT NOTE ---
ED Visit Note This patient was signed out to be with Dr. Handy at shift change. At that point , the game plan was if the ultrasound was unremarkable to likely discharge the patient home. She was noted to have a cyst on the right ovary and she's been having pain in that area. She has nothing to suggest appendicitis. She's had no dysuria or trauma. She was seen with a similar cyst several months ago at slightly larger. On my exam, she has no pain in she says is feeling very nauseated from the pain medication she feels. She was given Zofran 4 mg IV and a 1 liter fluid IV and was sipping fluids looks much better at this point I do not suspect torsion. She's been having ongoing issues with this. I discussed this with Dr. Ledbetter and she recommended pain management and they can follow up with her in the office she will need a follow-up ultrasound. She was given a prescription for OxyIR. She should return to the ER if: increasing pain, worsening of symptoms, any new problems or concerns. She was warned that OxyIR could make her drowsy do not take before drinking, driving, working. She was happy with plan and discharged to home.
[2017-08-02 00:27] VITALS: BP 106/57; PULSE 60; O2SAT 98
== END 2017-08-02 00:30 | disposition home or self-care (01) ==
LOC: C.EDB 17:48 → C.EDA 08-02 00:30
DX: N83.201 Unspecified ovarian cyst, right side (principal); R10.31 Right lower quadrant pain; M17.0 Bilateral primary osteoarthritis of knee; Z82.49 Family history of ischemic heart disease and other diseases of the circulatory system; Z83.3 Family history of diabetes mellitus; Z82.0 Family history of epilepsy and other diseases of the nervous system; Z79.899 Other long term (current) drug therapy

== ENCOUNTER 2017-08-22 09:26 | Emergency (ER) | payer SELFPAY ==
[~2017-08-22] VITALS: Ht 152.4 cm; Wt 95.4 kg
[~2017-08-22 09:26] MED LIST changes: +CLB/200 PO; +OXYC1TAB3 PO
[2017-08-22 09:33] VITALS: TEMP 36.6; Ht 152.4 cm; Wt 95.4 kg
[2017-08-22] MEDS ORDERED: XYLOCAINE 1%/SOD BICARB 20 ML VIAL INFIL STA (09:43)
--- NOTE | 2017-08-22 11:02 | EMERGENCY ROOM VISIT NOTE ---
ED Visit Note First contact with patient: 09:39 CHIEF COMPLAINT: Thumb laceration HISTORY OF PRESENT ILLNESS: This 27 year old female patient presents to the emergency department approximately 30 minutes after cutting the base of the right thumb on a pocket knife. The patient states she was using the knife to open a plastic package when the knife slipped, slicing her thumb. The knife was clean. The bleeding has not stopped. Denies weakness or numbness of the hand or fingers. The patient rates the pain as throbbing and 10/10. The patient denies any other injuries. She is left handed. The patient's Tetanus shot is up to date. REVIEW OF SYSTEMS: A 6 system review of systems was completed with positives and pertinent negatives listed in the HPI. ALLERGIES: None MEDICATIONS: Ibuprofen PMH: Ovarian Cyst SOCIAL HISTORY: The patient lives locally with family. She denies drug, alcohol , tobacco use. PHYSICAL EXAM: Vital Signs: Reviewed Nurse's notes, vital signs stable. GENERAL : This is a 27 year old female, in no acute distress, well-developed, well- nourished. SKIN: There is a 2 cm long laceration on the posterior aspect of the right hand, at the base of the thumb. The edges gape apart with traction. There is no foreign material in the wound and it looks clean. There is moderate active bleeding. No deep structures such as tendons, bones, or significant blood vessels are seen in the base of the wound. Normal strength and movement of the fingers and wrist. Capillary refill less than 2 seconds. Normal sensation to light and sharp touch. EMERGENCY DEPARTMENT COURSE: I examined the patient. Verbal consent was obtained to perform the procedure. Using sterile technique the wound was cleansed with Betadine. The area was sterilely draped. 5 ml of 1% buffered lidocaine was used to anesthetize the laceration on the hand. Once the patient was anesthetized, the wound was copiously irrigated under pressure with sterile saline. The wound was explored and was as described above. The laceration was repaired using 14 simple interrupted 5-0 nylon sutures with the wound edges being well approximated. The patient tolerated the procedure well. Hemostasis was achieved. The area was cleaned with sterile saline and dressed with bacitracin ointment and bandage. The patient was discharged home in good condition. \ I attest that I have personally reviewed the patient's current medication list. Patient was found to have normal blood pressure on screening and does not require follow-up. DIFFERENTIAL DIAGNOSIS: Laceration, fracture, tendon injury, open fracture, contusion, abrasion, avulsion, and others DIAGNOSIS: Hand laceration Problem List Medical Problems: (1) Cornea abrasion Status: Resolved (2) Pyelonephritis complicating , antepartum Status: Resolved Current/Historical Medications Scheduled Celecoxib (CeleBREX), 200 MG PO BID Levonorgestrel (Iud) (Mirena), 20 MCG INT UTER CONTINOUS Scheduled PRN Ibuprofen (Ibuprofen), 600 MG PO Q6H PRN for Pain Allergies Coded Allergies: No Known Allergies (Unverified , 08/22/17) Vital Signs Date Time Temp Pulse Resp B/P (MAP) Pulse Ox O2 Delivery O2 Flow Rate FiO2 08/22/17 11:21 59 16 110/65 96 Room Air 08/22/17 09:33 36.6 71 18 131/87 96 Medications Administered Medications (Trade) Dose Ordered Sig/Tani Route Start Time Stop Time Status Last Admin Dose Admin Acetaminophen (Tylenol Tab) 1,000 mg NOW STAT PO 08/22/17 11:03 08/22/17 11:04 DC 08/22/17 11:21 1,000 MG Departure Information Impression Primary Impression: Hand laceration Dispostion Home / Self-Care Condition GOOD Referrals Sofia Shelton,P.A. (PCP) Patient Instructions ED Laceration Ext Sutr Stap Tape, [facility] [facility] [employer] Additional Instructions You have received 14 sutures on your right hand. These sutures are NOT dissolvable and WILL need to be removed by a health care provider in 10-14 days. You can return to the Emergency Department or contact your Primary Care Provider to have the sutures removed. Proper wound care is essential for adequate wound healing and infection prevention. You can shower and clean the wound with soap and water. Do not scour over the wound, pat dry with a towel. Do not submerse the wound (i.e. bathe or dish wash) until the sutures have been removed. You can use an antibiotic ointment with a dressing over the wound for the next 3-4 days. After this time you may leave the wound dry and open to the air. If crust develops over the wound you can use a Q-tip to apply a 1:1 peroxide:water solution to clean the wound. Look for signs of infection of the wound including: increased pain, swelling, foul discharge, streaking, or increased temperature. If any of these are noticed you should return to the Emergency Department for further assessment and treatment. As with any laceration you may have received nerve damage to the surrounding tissues. This damage may or may not be permanent. You should keep the area covered with sunscreen for the first 6 months to 1 year when at risk for exposure to help minimize scarring. You can also use scar reducing creams or Vitamin E oil to help minimize scarring. For pain control, you can use the following [id number] medicines (if >12 yo): Ibuprofen(Motrin, Advil) may be used for fever or pain. Use 600mg every six hours as needed. Take with food. Avoid using more than 2400mg in a 24 hour period. Do not use 2400mg per day for more than three consecutive days without physician direction. Prolonged inappropriate use can lead to stomach upset or ulcers. (AND/OR) Acetaminophen(Tylenol) may be used for fever or pain. Use 1000mg every six hours as needed. Avoid using more than 3000mg in a 24 hour period. Return to the emergency department if your symptoms worsen despite treatment course outlined above. Work Instructions Additional Work Instructions: Please limit exposure to water. Wear a glove while doing dishes. May wash hands, but do not soak in water. Problem Qualifiers Primary Impression: Hand laceration Encounter type: initial encounter Foreign body presence: without foreign body Laterality: right Qualified Codes: S61.411A - Laceration without foreign body of right hand, initial encounter
[2017-08-22] MEDS ORDERED: ACETAMINOPHEN 500 MG TAB PO STA (11:03)
[2017-08-22] MEDS ORDERED: MTR600X PO (11:16)
[2017-08-22 11:21] VITALS: BP 110/65; PULSE 59; O2SAT 96
== END 2017-08-22 11:39 | disposition home or self-care (01) ==
LOC: C.EDB 09:27 → C.EDC 11:39
DX: S61.411A Laceration without foreign body of right hand, initial encounter (principal); W26.0XXA Contact with knife, initial encounter; N83.209 Unspecified ovarian cyst, unspecified side

== ENCOUNTER 2017-09-11 09:27 | Emergency (ER) | payer SELFPAY ==
[~2017-09-11] VITALS: Ht 152.4 cm; Wt 96.3 kg
[~2017-09-11 09:27] MED LIST changes: +MTR600X PO; -OXYC1TAB3 PO
[2017-09-11 09:31] VITALS: TEMP 36.3; Ht 152.4 cm; Wt 96.3 kg
[2017-09-11] MEDS ORDERED: ONDANSETRON INJ 2 MG/ML 2 ML VIAL IV STA (09:47)
[2017-09-11] MEDS ORDERED: MoRPHine SULFATE 4 MG/ML 1 ML CARP\\VIAL IV STA (09:47)
[2017-09-11 10:22] LABS: BASO % 0.3 %; BASO ABS # 0.03 K/uL (0-0.2); EOS % 1.4 %; EOS ABS # 0.16 K/uL (0-0.5); HEMATOCRIT 46.8 % (37-47); HEMOGLOBIN 15.7 g/dL (12.0-16.0); IG# 0.02 K/uL (0.00-0.02); LYMPH % 17.8 %; LYMPH ABS # 1.98 K/uL (1.2-3.4); MEAN CELL VOLUME 93.4 fL (80-100); MEAN CORPUSCULAR HEMOGLOBIN 31.3 pg (25-34); MEAN CORPUSCULAR HGB CONC 33.5 g/dl (32-36); MEAN PLATELET VOLUME 9.8 fL (7.4-10.4); MONO % 5.7 %; MONO ABS # 0.63 K/uL (0.11-0.59); NEUT % 74.6 %; NEUT ABS # 8.29 K/uL (1.4-6.5); PLATELET COUNT 367 K/uL (130-400); RED CELL DISTRIBUTION WIDTH CV 13.3 % (11.5-14.5); WHITE BLOOD COUNT 11.11 K/uL (4.8-10.8)
[2017-09-11 10:24] LABS: ALBUMIN 4.1 gm/dl (3.4-5.0); CALCIUM 9.1 mg/dl (8.5-10.1); CREATININE 0.72 mg/dl (0.60-1.20); POTASSIUM 3.5 mmol/L (3.5-5.1)
[2017-09-11 10:27] LABS: TOTAL PROTEIN 8.3 gm/dl (6.4-8.2)
[2017-09-11] MEDS ORDERED: OPTIRAY 320 IV PRN (10:30)
[2017-09-11] MEDS ORDERED: MoRPHine SULFATE 2 MG/ML CARP IV STA (11:06)
[2017-09-11 14:09] VITALS: BP 104/62; PULSE 57; O2SAT 98
--- NOTE | 2017-09-11 14:12 | DIAGNOSTIC IMAGING REPORT ---
CT ABD/PELVIS IV AND ORAL CONT CLINICAL HISTORY: Right lower quadrant abdominal pain COMPARISON STUDY: 08/01/2017 TECHNIQUE: Following the IV administration of 93 mL of Optiray-320, CT scan of the abdomen and pelvis was performed from the lung bases to the proximal femurs. Images are reviewed in the axial, sagittal, and coronal planes. IV contrast was administered without complication. A dose lowering technique was utilized adhering to the principles of ALARA. CT DOSE: 1008.10 mGy.cm FINDINGS: Lower chest: The heart is normal in size and configuration, without pericardial effusion. The lung bases and pleural spaces are clear. Liver: There is an area of focal hypodensity within the medial segment the left lobe abutting the falciform ligament, this likely represents focal fat. The liver appears otherwise normal. Gallbladder: Unremarkable. Spleen: Normal in size and attenuation. Pancreas: Unremarkable. Adrenal glands: Unremarkable. Kidneys: There is symmetric renal cortical enhancement. The kidneys are normal in size without hydronephrosis. Bowel: There are no transition zones indicate bowel obstruction. The appendix appears normal. There is no acute diverticulitis. Peritoneum: There is no intraperitoneal free air or abdominal ascites. Vasculature: The abdominal aorta is normal in course and caliber. Adenopathy: None. Pelvic viscera: There is an indwelling IUD. There is a 4.5 cm left ovarian cyst/follicle. Given the patient's age this is statistically functional. Skeletal structures: No destructive osseous lesions are seen. IMPRESSION: 1. No evidence of bowel obstruction. No evidence of free air 2. Normal appendix 3. No evidence of acute diverticulitis 4. 4.5 cm left ovarian cyst/follicle Electronically signed by: Alonso White M.D. 09/11/2017 2:11 PM Dictated Date/Time: 09/11/2017 2:06 PM
[2017-09-11] MEDS ORDERED: SULFAMETHOXAZOLE/TRIMETHOPRIM DS 800/160MG TAB PO STA (14:17)
[2017-09-11] MEDS ORDERED: SULF800T23 PO (14:19)
--- NOTE | 2017-09-11 15:00 | EMERGENCY ROOM VISIT NOTE ---
History Report prepared by Levy: Zhang Avery Under the Supervision of: Dr. Lyle Grier M.D. First contact with patient: 09:36 Chief Complaint: ABDOMINAL PAIN Stated Complaint: RIGHT ABDOMNIAL PAIN Nursing Triage Summary: pt reports she has ovarian cyst thinks it is getting bigger or ready to burst having alot of pain dx at obgyn office has f/u appt on History of Present Illness The patient is a 27 year old female who presents to the Emergency Room with complaints of sharp right lower abdominal pain that began last night. She rates her pain a 10/10 in severity. She has a past medical history of ovarian cysts and believes her current symptoms to be congruent with her past experience. She was diagnosed with an ovarian cyst 1 month ago and notes that her abdominal pain has been intermittent through that time. She states that her current pain is the same pain she has been experiencing, but it is significantly worse. She notes that her pain is now radiating around her right side into her lower back. She is also experiencing nausea, mild diarrhea, and mild urinary irritation along with her pain. She denies any fevers, vomiting, hematuria, melena, hematochezia, abnormal vaginal bleeding, or abnormal vaginal discharge. She denies undergoing any surgical procedures other than the placement of an IUD. Her sister was diagnosed on ultrasound at her [employer] office. She has no appointment to see them again on the . Source of History: patient Onset: last night Position: abdomen (RLQ) Symptom Intensity: 10/10 Quality: sharp Timing: worsening Associated Symptoms: + nausea, + diarrhea (mild), + urinary symptoms (mild irritation), No vomiting, No melena, No hematochezia Note: She denies any hematuria, abnormal vaginal bleeding, or abnormal vaginal discharge. Review of Systems See HPI for pertinent positives & negatives. A total of 10 systems reviewed and were otherwise negative. Past Medical & Surgical Medical Problems: (1) Arthritis of both knees (2) Cornea abrasion (3) Pyelonephritis complicating , antepartum Family History FH: HTN (hypertension) FH: cancer FH: diabetes mellitus FH: kidney disease FH: seizures Social History Smoking Status: Never Smoker Drug Use: none Marital Status: single Housing Status: lives with family Occupation Status: employed Current/Historical Medications Scheduled Celecoxib (CeleBREX), 200 MG PO BID Levonorgestrel (Iud) (Mirena), 20 MCG INT UTER CONTINOUS Sulfa/Trimethoprim (Bactrim Ds 800MG/160MG), 1 TAB PO BID Scheduled PRN Ibuprofen (Ibuprofen), 600 MG PO Q6H PRN for Pain Allergies Coded Allergies: No Known Allergies (Unverified , 09/11/17) Physical Exam Vital Signs Date Time Temp Pulse Resp B/P (MAP) Pulse Ox O2 Delivery O2 Flow Rate FiO2 09/11/17 14:09 57 18 104/62 98 Room Air 09/11/17 09:31 36.3 73 18 128/80 95 Room Air Physical Exam Constitutional: Vital signs reviewed. Eyes: Pupils are equal round reactive to light. Conjunctiva are noninjected. ENT: Pharynx is clear without erythema or exudate. Mucous membranes are moist. Neck supple without meningeal signs. Respiratory: Clear to auscultation bilaterally. Breath sounds are equal bilaterally. Cardiovascular: Regular rate and rhythm. No rubs or gallops. GI: Soft, nondistended. Right light quadrant tenderness with slight tenderness in the RUQ. Positive Rovsing's sign. No rebound. Bowel sounds are present. Musculoskeletal: No peripheral edema. No CVA tenderness. Integumentary: No cyanosis. Neurological: The patient is awake and alert. No focal deficits. Psychiatric: Normal affect. Medical Decision & Procedures ER Provider Diagnostic Interpretation: Radiology results as stated below per my review and the radiologist's interpretation: CT ABD/PELVIS IV AND ORAL CONT CLINICAL HISTORY: Right lower quadrant abdominal pain COMPARISON STUDY: 08/01/2017 TECHNIQUE: Following the IV administration of 93 mL of Optiray-320, CT scan of the abdomen and pelvis was performed from the lung bases to the proximal femurs. Images are reviewed in the axial, sagittal, and coronal planes. IV contrast was administered without complication. A dose lowering technique was utilized adhering to the principles of ALARA. CT DOSE: 1008.10 mGy.cm FINDINGS: Lower chest: The heart is normal in size and configuration, without pericardial effusion. The lung bases and pleural spaces are clear. Liver: There is an area of focal hypodensity within the medial segment the left lobe abutting the falciform ligament, this likely represents focal fat. The liver appears otherwise normal. Gallbladder: Unremarkable. Spleen: Normal in size and attenuation. Pancreas: Unremarkable. Adrenal glands: Unremarkable. Kidneys: There is symmetric renal cortical enhancement. The kidneys are normal in size without hydronephrosis. Bowel: There are no transition zones indicate bowel obstruction. The appendix appears normal. There is no acute diverticulitis. Peritoneum: There is no intraperitoneal free air or abdominal ascites. Vasculature: The abdominal aorta is normal in course and caliber. Adenopathy: None. Pelvic viscera: There is an indwelling IUD. There is a 4.5 cm left ovarian cyst/follicle. Given the patient's age this is statistically functional. Skeletal structures: No destructive osseous lesions are seen. IMPRESSION: 1. No evidence of bowel obstruction. No evidence of free air 2. Normal appendix 3. No evidence of acute diverticulitis 4. 4.5 cm left ovarian cyst/follicle Electronically signed by: Alonso White M.D. 09/11/2017 2:11 PM Dictated Date/Time: 09/11/2017 2:06 PM Laboratory Results 09/11/17 09:58 Red Blood Count 5.01, Mean Corpuscular Volume 93.4, Mean Corpuscular Hemoglobin 31.3, Mean Corpuscular Hemoglobin Concent 33.5, Mean Platelet Volume 9.8, Neutrophils (%) (Auto) 74.6, Lymphocytes (%) (Auto) 17.8, Monocytes (%) (Auto) 5.7, Eosinophils (%) (Auto) 1.4, Basophils (%) (Auto) 0.3, Neutrophils # (Auto) 8.29, Lymphocytes # (Auto) 1.98, Monocytes # (Auto) 0.63, Eosinophils # (Auto) 0.16, Basophils # (Auto) 0.03 09/11/17 09:58 Test 09/11/17 09:49 09/11/17 09:58 Urine Color DK YELLOW Urine Appearance CLOUDY (CLEAR) Urine pH 5.0 (4.5-7.5) Urine Specific [place] 1.035 (1.000-1.030) Urine Protein 1+ (NEG) Urine Glucose (UA) NEG (NEG) Urine Ketones TRACE (NEG) Urine Occult Blood 2+ (NEG) Urine Nitrite NEG (NEG) Urine Bilirubin NEG (NEG) Urine Urobilinogen NEG (NEG) Urine Leukocyte Esterase SMALL (NEG) Urine WBC (Auto) >30 /hpf (0-5) Urine RBC (Auto) 5-10 /hpf (0-4) Urine Hyaline Casts (Auto) /lpf (0-5) Urine Epithelial Cells (Auto) >30 /lpf (0-5) Urine Bacteria (Auto) 2+ (NEG) Urine Pathogenic Casts /lpf (0) Urine Test NEG (NEG) White Blood Count 11.11 K/uL (4.8-10.8) Red Blood Count 5.01 M/uL (4.2-5.4) Hemoglobin 15.7 g/dL (12.0-16.0) Hematocrit 46.8 % (37-47) Mean Corpuscular Volume 93.4 fL (80-100) Mean Corpuscular Hemoglobin 31.3 pg (25-34) Mean Corpuscular Hemoglobin Concent 33.5 g/dl (32-36) Platelet Count 367 K/uL (130-400) Mean Platelet Volume 9.8 fL (7.4-10.4) Neutrophils (%) (Auto) 74.6 % Lymphocytes (%) (Auto) 17.8 % Monocytes (%) (Auto) 5.7 % Eosinophils (%) (Auto) 1.4 % Basophils (%) (Auto) 0.3 % Neutrophils # (Auto) 8.29 K/uL (1.4-6.5) Lymphocytes # (Auto) 1.98 K/uL (1.2-3.4) Monocytes # (Auto) 0.63 K/uL (0.11-0.59) Eosinophils # (Auto) 0.16 K/uL (0-0.5) Basophils # (Auto) 0.03 K/uL (0-0.2) RDW Standard Deviation 45.0 fL (36.4-46.3) RDW Coefficient of Variation 13.3 % (11.5-14.5) Immature Granulocyte % (Auto) 0.2 % Immature Granulocyte # (Auto) 0.02 K/uL (0.00-0.02) Anion Gap 6.0 mmol/L (3-11) Est Creatinine Clear Calc Drug Dose 124.1 ml/min Estimated GFR () 134.9 Estimated GFR (Non- 116.4 BUN/Creatinine Ratio 15.1 (10-20) Calcium Level 9.1 mg/dl (8.5-10.1) Total Bilirubin 0.6 mg/dl (0.2-1) Direct Bilirubin 0.1 mg/dl (0-0.2) Aspartate Amino Transf (AST/SGOT) 16 U/L (15-37) Alanine Aminotransferase (ALT/SGPT) 23 U/L (12-78) Alkaline Phosphatase 70 U/L (45-117) Total Protein 8.3 gm/dl (6.4-8.2) Albumin 4.1 gm/dl (3.4-5.0) Lipase 129 U/L (73-393) Laboratory results as reviewed by me. Medications Administered Medications (Trade) Dose Ordered Sig/Tnai Route Start Time Stop Time Status Last Admin Dose Admin Morphine Sulfate (MoRPHine SULFATE INJ) 4 mg ONE STAT IV 09/11/17 09:47 09/11/17 09:48 DC 09/11/17 10:08 4 MG Ondansetron HCl (Zofran Inj) 4 mg NOW STAT IV 09/11/17 09:47 09/11/17 09:48 DC 09/11/17 10:08 4 MG Morphine Sulfate (MoRPHine SULFATE INJ) 2 mg NOW STAT IV 09/11/17 11:06 09/11/17 11:07 DC 09/11/17 11:14 2 MG Trimethoprim/ Sulfamethoxazole (Septra Ds 800/ 160MG Tab) 1 tab NOW STAT PO 09/11/17 14:17 09/11/17 14:18 DC 09/11/17 14:43 1 TAB ED Course 0936: The patient was evaluated in room B6. A complete history and physical exam was performed. 0947: Ordered Zofran Inj 4 mg IV, Morphine Sulfate 4 mg IV 1106: Ordered Morphine Sulfate 2 mg IV 1148: I updated the patient on her test results. 1417: I updated her on the rest of her results. She will be discharged. Ordered Trimethoprim/Sulfamethoxazole 1 tab PO 1428: Upon reevaluation, the patient appeared to have improvement of her symptoms. I discussed porsche's findings with her. She verbalized agreement of the treatment plan. She was discharged home. Medical Decision This is a 27-year-old female who presents with right lower quadrant abdominal pain. Differential diagnosis includes appendicitis, perforation, abscess, irritable bowel syndrome, inflammatory bowel disease, ectopic , ovarian cyst, UTI. I did perform a limited focused review of portions of the patient's old chart on the electronic medical record. The patient has had no recent pertinent visits to this hospital. I did evaluate the patient as noted above. The patient presents with pain in her right lower quadrant. She states she has had it intermittently for the past month and was diagnosed with a ovarian cyst on the right side. She states the pain got worse yesterday and so she presents here. She complains of anorexia and nausea. She does have right lower quadrant tenderness and a Rovsing sign. IV access was established. I did treat patient with IV morphine and Zofran. I did order and personally review the patient's urinalysis as described above. Urine test was negative. Urine culture was sent. I did order and review the patient's blood work as noted in the electronic medical record. Her white blood cell count is slightly elevated. I did order a CT of the abdomen and pelvis. I did review the images myself as well as the radiology report as described above. There is no evidence of acute appendicitis. She does have an ovarian cyst but it is on the left side. I did discuss the test results with the patient. I did recommend she follow closely with her doctor and [employer]. She was treated with Bactrim and discharged with a prescription for Bactrim for her UTI. She was given return instructions as outlined below. Medication Reconcilliation Current Medication List: was personally reviewed by me Blood Pressure Screening Patient's blood pressure: Elevated blood pressure Blood pressure disposition: Elevated BP felt to be situational Impression Primary Impression: Right lower quadrant abdominal pain Additional Impressions: Left ovarian cyst UTI (urinary tract infection) Scribe Attestation The scribe's documentation has been prepared under my direct and personally reviewed by me in its entirety. I confirm that the note above accurately reflects all work, treatment, procedures, and medical decision making performed by me. Departure Information Dispostion Home / Self-Care Prescriptions Sulfa/Trimethoprim (Bactrim Ds 800MG/160MG) Tab 1 TAB PO BID, #14 TAB Prov: Lyle Grier M.D. 09/11/17 Referrals Sofia SheltonP.ARukhsana (PCP) Forms HOME CARE DOCUMENTATION FORM, IMPORTANT VISIT INFORMATION Patient Instructions ED Abdominal Pain Unkn Cause, ED Cyst Ovarian, ED UTI Cystitis Female, [facility] Additional Instructions You have been examined and treated today on an emergency basis only. This is not a substitute for, or an effort to provide, complete comprehensive medical care. It is impossible to recognize and treat all injuries or illnesses in a single emergency department visit. It is therefore important that you follow up closely with your physician. Call as soon as possible for an appointment. Return for worsening symptoms or if you develop fever, vomiting, or any other concerning symptoms. Problem Qualifiers Additional Impressions: UTI (urinary tract infection) Urinary tract infection type: acute cystitis Hematuria presence: with hematuria Qualified Codes: N30.01 - Acute cystitis with hematuria
== END 2017-09-11 14:47 | disposition home or self-care (01) ==
LOC: C.EDB 09:28
DX: R10.31 Right lower quadrant pain (principal); N83.202 Unspecified ovarian cyst, left side; N30.01 Acute cystitis with hematuria; Z80.9 Family history of malignant neoplasm, unspecified; Z83.3 Family history of diabetes mellitus; Z84.1 Family history of disorders of kidney and ureter; Z82.49 Family history of ischemic heart disease and other diseases of the circulatory system; Z79.899 Other long term (current) drug therapy

== ENCOUNTER 2017-09-19 14:16 | Emergency (ER) | payer SELFPAY ==
[~2017-09-19] VITALS: Ht 152.4 cm; Wt 96.0 kg
[~2017-09-19 14:16] MED LIST changes: +LEVO1IUD2 INT UTER; -LEVOIUD INT UTER; +SULF800T23 PO
[2017-09-19 14:21] VITALS: TEMP 36.6; Ht 152.4 cm; Wt 96.0 kg
[2017-09-19] MEDS ORDERED: KETOROLAC TROMETHAMINE 30 MG/ML VIAL IV STA (15:16)
[2017-09-19 15:44] LABS: BASO % 0.3 %; BASO ABS # 0.02 K/uL (0-0.2); EOS ABS # 0.16 K/uL (0-0.5); HEMATOCRIT 46.1 % (37-47); HEMOGLOBIN 15.4 g/dL (12.0-16.0); IG# 0.03 K/uL (0.00-0.02); LYMPH % 19.9 %; LYMPH ABS # 1.59 K/uL (1.2-3.4); MEAN CORPUSCULAR HEMOGLOBIN 30.7 pg (25-34); MEAN CORPUSCULAR HGB CONC 33.4 g/dl (32-36); MONO % 10.3 %; MONO ABS # 0.82 K/uL (0.11-0.59); NEUT % 67.1 %; NEUT ABS # 5.38 K/uL (1.4-6.5); PLATELET COUNT 367 K/uL (130-400); RED CELL DISTRIBUTION WIDTH CV 12.9 % (11.5-14.5); RED CELL DISTRIBUTION WIDTH SD 43.3 fL (36.4-46.3)
[2017-09-19 16:02] LABS: ALT/SGPT 21 U/L (12-78); BLOOD UREA NITROGEN 7 mg/dl (7-18); CALCIUM 9.4 mg/dl (8.5-10.1); CARBON DIOXIDE 28 mmol/L (21-32); CREATININE 0.62 mg/dl (0.60-1.20); GLUCOSE 80 mg/dl (70-99); POTASSIUM 3.6 mmol/L (3.5-5.1); SODIUM 137 mmol/L (136-145)
[2017-09-19 16:07] LABS: ALKALINE PHOSPHATASE 66 U/L (45-117); AST/SGOT 16 U/L (15-37); CKMB 1.4 ng/ml (0.5-3.6)
--- NOTE | 2017-09-19 16:54 | DIAGNOSTIC IMAGING REPORT ---
CHEST 2 VIEWS ROUTINE HISTORY: Atypical CHEST PAIN, SHORTNESS OF BREATH COMPARISON: None. FINDINGS: The lungs are clear. Cardiac silhouette is normal in size. No pleural effusions. No pneumothorax. IMPRESSION: No acute process. Electronically signed by: Bandar Gaffney M.D. 09/19/2017 4:52 PM Dictated Date/Time: 09/19/2017 4:52 PM
--- NOTE | 2017-09-19 17:20 | EMERGENCY ROOM VISIT NOTE ---
ED Visit Note First contact with patient: 14:59 CHIEF COMPLAINT: Episode of chest pain and shortness of breath at work today HISTORY OF PRESENT ILLNESS: Patient is a 27-year-old white female who generally enjoys good health, who presents to the emergency department for evaluation of an episode of chest pain and shortness of breath that lasted her roughly 3 minutes while at work about 3 hours ago. Patient reports that she developed a cold consisting of nasal congestion, stuffy nose and a slight sore throat about 2 days ago. She denies any fever, chills, body and muscle aches. She has been taking Mucinex, Robitussin and Tylenol Cold and flu for her symptoms. Today while at work, she states that she was standing, taking an order and she had to stop and sit down because she developed some left mid sternal chest pain and shortness of breath. She states it lasted her about 3 minutes, then her symptoms began to improve. She states the pain persists but her breathing has normalized. She rates her discomfort an 8/10. She denies any cough or sputum production. She did not take any medications for her symptoms today. She notes that the pain is in the left midsternal area and does not radiate. No associated lightheadedness, dizziness, nausea or vomiting. She is nonsmoker. REVIEW OF SYSTEMS: Review of systems as per HPI. All other systems reviewed were negative. 10 systems reviewed. PMH: Electronic medical records are reviewed and summarized as above/below. See Problem List. The patient has an IUD, and does not get regular menses. SOCIAL HISTORY: Patient lives at home. She is employed at a fast food restaurant. She is a former smoker, quit 3 years ago. PHYSICAL EXAM: Vital Signs: Reviewed Nurse's notes. CONSTITUTIONAL: Patient is a well-appearing 27-year-old white female who is awake and alert and sitting upright on the gurney in no acute distress. There is no increased work of breathing. No conversational dyspnea. Vital signs are stable. EYES: Pupils equal, round, reactive to light and accommodation. EOMs intact without nystagmus. Sclera are anicteric. ENT: Tympanic membranes intact, with normal landmarks. External canals are clear. Oral and nasopharynx are clear. Mucous membranes are moist, no lesions , tongue and gums appear normal. NECK: Supple without lymphadenopathy. No thyromegaly. No meningeal signs. Full active range of motion without discomfort. CARDIOVASCULAR: Regular rate and rhythm, with normal S1 and S2, no murmur or gallop or rub is heard. No carotid bruits auscultated. No JVD. Peripheral pulses easily palpable. RESPIRATORY: Breath sounds equal and clear to auscultation without wheezes, rales, or rhonchi heard. Full and equal chest expansion without accessory muscle use or retractions. She does have some reproducible discomfort over the left sternal border. INTEGUMENTARY: No lesions or rash, normal skin turgor. LYMPH: No lymphadenopathy. EMERGENCY DEPARTMENT COURSE: The patient was seen and evaluated as above. She has had a couple of days of some minor upper respiratory symptoms and had an episode of chest pain and shortness of breath at work several hours ago. She states that the shortness of breath has resolved but she still has some left- sided chest discomfort. She does have some reproducible sternal discomfort on exam. Vital signs are stable and she is afebrile. IV lock initiated. Laboratory studies were collected. She was medicated with Toradol 30 mg IV for pain. CBC with differential, CMP, cardiac enzymes and [id number] d-dimer were drawn. Urinalysis and urine test were performed. Chest x-ray was obtained. The patient's laboratory studies revealed no anemia, leukocytosis, left shift or bandemia. Electrolytes, liver functions, renal function and cardiac enzymes are negative. Urine test was negative, urinalysis was indicative of contamination with greater than 30 epithelial cells. A [id number] d-dimer was performed and was within normal limits, given this and the lack of PE risk factors, further workup for PE was not pursued. Chest x-ray did not note any acute cardiopulmonary findings. EKG: Sinus rhythm with sinus arrhythmia, 64 beats per minute, no ectopy or acute ischemic changes. All laboratory and diagnostic imaging studies were reviewed with the patient. She was reassured. At discharge, she rated her discomfort a 4/10. She may have had some musculoskeletal or chest wall pain, differential diagnoses also entertained included pneumonia, bronchitis, pulmonary embolus and pneumothorax. The patient remained hemodynamically stable while in the emergency department. She was encouraged to follow up with her primary care provider if her symptoms persist. She is discharged home in good condition. Medication reconciliation: I attest that I have personally reviewed the patient' s current medication list. Blood pressure screening : Patient was found to have normal blood pressure on screening and does not require follow-up. CHEST 2 VIEWS ROUTINE HISTORY: Atypical CHEST PAIN, SHORTNESS OF BREATH COMPARISON: None. FINDINGS: The lungs are clear. Cardiac silhouette is normal in size. No pleural effusions. No pneumothorax. IMPRESSION: No acute process. Problem List Medical Problems: (1) 35 weeks gestation of Status: Resolved (2) 37 weeks gestation of Status: Resolved (3) Abdominal pain Status: Resolved (4) Arthritis of both knees Status: Resolved (5) Cornea abrasion Status: Resolved (6) First stage of labor established Status: Resolved (7) Injury of right knee Status: Resolved (8) Left anterior knee pain Status: Resolved (9) Left ovarian cyst Status: Chronic (10) Lumbar strain Status: Resolved (11) Nausea vomiting and diarrhea Status: Resolved (12) Status: Resolved (13) Pyelonephritis complicating , antepartum Status: Resolved (14) Right lower quadrant abdominal pain Status: Resolved (15) UTI (lower urinary tract infection) Status: Resolved (16) UTI (urinary tract infection) Status: Resolved (17) Vomiting and diarrhea Status: Resolved (18) Work related injury Status: Resolved Current/Historical Medications Scheduled Celecoxib (CeleBREX), 200 MG PO BID Levonorgestrel (Iud) (Mirena), 20 MCG INT UTER CONTINOUS Scheduled PRN Ibuprofen (Ibuprofen), 600 MG PO Q6H PRN for Pain Allergies Coded Allergies: No Known Allergies (Unverified , 09/19/17) Vital Signs Date Time Temp Pulse Resp B/P (MAP) Pulse Ox O2 Delivery O2 Flow Rate FiO2 09/19/17 17:47 64 122/74 98 09/19/17 15:59 57 124/69 97 Room Air 09/19/17 14:21 36.6 66 16 117/82 96 Laboratory Results 09/19/17 15:26 Red Blood Count 5.01, Mean Corpuscular Volume 92.0, Mean Corpuscular Hemoglobin 30.7, Mean Corpuscular Hemoglobin Concent 33.4, Mean Platelet Volume 10.0, Neutrophils (%) (Auto) 67.1, Lymphocytes (%) (Auto) 19.9, Monocytes (%) (Auto) 10.3, Eosinophils (%) (Auto) 2.0, Basophils (%) (Auto) 0.3, Neutrophils # (Auto ) 5.38, Lymphocytes # (Auto) 1.59, Monocytes # (Auto) 0.82, Eosinophils # (Auto ) 0.16, Basophils # (Auto) 0.02 09/19/17 15:26 Test 09/19/17 15:26 09/19/17 15:30 09/19/17 15:38 White Blood Count 8.00 K/uL (4.8-10.8) Red Blood Count 5.01 M/uL (4.2-5.4) Hemoglobin 15.4 g/dL (12.0-16.0) Hematocrit 46.1 % (37-47) Mean Corpuscular Volume 92.0 fL (80-100) Mean Corpuscular Hemoglobin 30.7 pg (25-34) Mean Corpuscular Hemoglobin Concent 33.4 g/dl (32-36) Platelet Count 367 K/uL (130-400) Mean Platelet Volume 10.0 fL (7.4-10.4) Neutrophils (%) (Auto) 67.1 % Lymphocytes (%) (Auto) 19.9 % Monocytes (%) (Auto) 10.3 % Eosinophils (%) (Auto) 2.0 % Basophils (%) (Auto) 0.3 % Neutrophils # (Auto) 5.38 K/uL (1.4-6.5) Lymphocytes # (Auto) 1.59 K/uL (1.2-3.4) Monocytes # (Auto) 0.82 K/uL (0.11-0.59) Eosinophils # (Auto) 0.16 K/uL (0-0.5) Basophils # (Auto) 0.02 K/uL (0-0.2) RDW Standard Deviation 43.3 fL (36.4-46.3) RDW Coefficient of Variation 12.9 % (11.5-14.5) Immature Granulocyte % (Auto) 0.4 % Immature Granulocyte # (Auto) 0.03 K/uL (0.00-0.02) Anion Gap 9.0 mmol/L (3-11) Est Creatinine Clear Calc Drug Dose 143.9 ml/min Estimated GFR () 145.3 Estimated GFR (Non- 125.3 BUN/Creatinine Ratio 11.7 (10-20) Calcium Level 9.4 mg/dl (8.5-10.1) Total Bilirubin 0.5 mg/dl (0.2-1) Aspartate Amino Transf (AST/SGOT) 16 U/L (15-37) Alanine Aminotransferase (ALT/SGPT) 21 U/L (12-78) Alkaline Phosphatase 66 U/L (45-117) Total Creatine Kinase 80 U/L (26-192) Creatine Kinase MB 1.4 ng/ml (0.5-3.6) Creatine Kinase MB Ratio 1.7 (0-3.0) Troponin I < 0.015 ng/ml (0-0.045) Total Protein 8.0 gm/dl (6.4-8.2) Albumin 4.0 gm/dl (3.4-5.0) Globulin 4.0 gm/dl (2.5-4.0) Albumin/Globulin Ratio 1.0 (0.9-2) Urine Color YELLOW Urine Appearance CLEAR (CLEAR) Urine pH 8.0 (4.5-7.5) Urine Specific [place] 1.008 (1.000-1.030) Urine Protein NEG (NEG) Urine Glucose (UA) NEG (NEG) Urine Ketones NEG (NEG) Urine Occult Blood 1+ (NEG) Urine Nitrite NEG (NEG) Urine Bilirubin NEG (NEG) Urine Urobilinogen NEG (NEG) Urine Leukocyte Esterase TRACE (NEG) Urine WBC (Auto) 1-5 /hpf (0-5) Urine RBC (Auto) 0-4 /hpf (0-4) Urine Hyaline Casts (Auto) 0 /lpf (0-5) Urine Epithelial Cells (Auto) >30 /lpf (0-5) Urine Bacteria (Auto) NEG (NEG) Urine Test NEG (NEG) Bedside D-Dimer 242 ng/mlFEU (0-450) Medications Administered Medications (Trade) Dose Ordered Sig/Tani Route Start Time Stop Time Status Last Admin Dose Admin Ketorolac Tromethamine (Toradol Inj) 30 mg NOW STAT IV 09/19/17 15:16 09/19/17 15:18 DC 09/19/17 15:58 30 MG Departure Information Impression Primary Impression: Non-cardiac chest pain Referrals Sofia Shelton,P.A. (PCP) Patient Instructions My [facility] Additional Instructions Acetaminophen(Tylenol) may be used for fever or pain. Use 1000mg every six hours as needed. Avoid using more than 3000mg in a 24 hour period. (AND/OR) Ibuprofen(Motrin, Advil) may be used for fever or pain. Use 600mg every six hours as needed. Take with food. Avoid using more than 2400mg in a 24 hour period. Do not use 2400mg per day for more than three consecutive days without physician direction. Prolonged inappropriate use can lead to stomach upset or ulcers. Pseudoephedrine(Sudaphed): 30-60mg every 6 hours as needed for nasal congestion. Do not take this with other stimulant products or supplements. Guaifenesin (Mucinex) : Take 1200 mg every 12 hours as needed for nasal/chest congestion, to help thin secretions. Rest and drink plenty of fluids. Wash your hands after nose blowing, sneezing, or coughing. Most germs are spread through contact, therefore improper hygiene may result in your close contacts and loved ones becoming ill just like you. Continue current medications. Return to the ER for severe headache, neck stiffness, chest pain, difficulty breathing, fevers, vomiting, worsening of your condition, or as needed. Follow up with your primary physician this week for a recheck of your current condition.
[2017-09-19 17:47] VITALS: BP 122/74; PULSE 64; O2SAT 98
== END 2017-09-19 17:48 | disposition home or self-care (01) ==
LOC: C.EDB 14:17 → C.EDA 17:48
DX: R07.89 Other chest pain (principal); Z87.891 Personal history of nicotine dependence; Z79.899 Other long term (current) drug therapy

== ENCOUNTER 2017-09-20 20:49 | Emergency (ER) | payer OTHER ==
[~2017-09-20] VITALS: Ht 152.4 cm; Wt 97.1 kg
[~2017-09-20 20:49] MED LIST changes: -SULF800T23 PO
[2017-09-20 21:02] VITALS: TEMP 36.4; Ht 152.4 cm; Wt 97.1 kg
[2017-09-20] MEDS ORDERED: KETOROLAC TROMETHAMINE 30 MG/ML VIAL IV STA (21:06)
[2017-09-20] MEDS ORDERED: SODIUM CHLORIDE 0.9% 1000ML 1,000 ML IV STA (21:06)
[2017-09-20] MEDS ORDERED: LORAZEPAM 2 MG/ML 1 ML VIAL IV STA (21:06)
[2017-09-20 21:13] VITALS: O2SAT 100
[2017-09-20 21:50] LABS: BASO % 0.3 %; BASO ABS # 0.03 K/uL (0-0.2); EOS % 2.4 %; EOS ABS # 0.21 K/uL (0-0.5); HEMATOCRIT 43.2 % (37-47); HEMOGLOBIN 14.6 g/dL (12.0-16.0); IG# 0.02 K/uL (0.00-0.02); LYMPH ABS # 1.83 K/uL (1.2-3.4); MEAN CELL VOLUME 92.5 fL (80-100); MEAN CORPUSCULAR HEMOGLOBIN 31.3 pg (25-34); MEAN CORPUSCULAR HGB CONC 33.8 g/dl (32-36); MONO % 11.1 %; MONO ABS # 0.97 K/uL (0.11-0.59); NEUT ABS # 5.64 K/uL (1.4-6.5); PLATELET COUNT 369 K/uL (130-400); RED CELL DISTRIBUTION WIDTH CV 13.3 % (11.5-14.5); RED CELL DISTRIBUTION WIDTH SD 45.1 fL (36.4-46.3)
[2017-09-20 22:14] LABS: ALBUMIN 3.6 gm/dl (3.4-5.0); ALT/SGPT 20 U/L (12-78); BLOOD UREA NITROGEN 8 mg/dl (7-18); CALCIUM 8.9 mg/dl (8.5-10.1); CARBON DIOXIDE 22 mmol/L (21-32); CREATININE 0.77 mg/dl (0.60-1.20); GLUCOSE 124 mg/dl (70-99); LIPASE 150 U/L (73-393); POTASSIUM 3.4 mmol/L (3.5-5.1); SODIUM 138 mmol/L (136-145)
--- NOTE | 2017-09-20 22:16 | DIAGNOSTIC IMAGING REPORT ---
CHEST ONE VIEW PORTABLE CLINICAL HISTORY: Atypical chest pain COMPARISON STUDY: No previous studies for comparison. FINDINGS: The cardiac and mediastinal contours are normal. There is no evidence of focal pulmonary consolidation. There is no evidence of failure. No pleural effusions are visualized.[ IMPRESSION: No active disease in the chest. Electronically signed by: Alonso White M.D. 09/20/2017 10:15 PM Dictated Date/Time: 09/20/2017 10:14 PM
[2017-09-20 22:19] LABS: ALKALINE PHOSPHATASE 67 U/L (45-117); AST/SGOT 16 U/L (15-37); TOTAL PROTEIN 7.6 gm/dl (6.4-8.2)
--- NOTE | 2017-09-20 23:23 | EMERGENCY ROOM VISIT NOTE ---
History Report prepared by Levy: Mariposa Damian Under the Supervision of: Dr. Aquiles Medina M.D. First contact with patient: 21:01 Chief Complaint: SHORTNESS OF BREATH Stated Complaint: CHEST PAIN History of Present Illness The patient is a 27 year old female who presents to the Emergency Room with complaints of persistent SOB starting 1 hour ago. The patient presents to the ED by EMS. Her SOB started while she was walking in the house. She has never had this before. She reports left sided chest pain and tingling in her hands. The pain is worse with lying flat. She was seen in the ED yesterday for chest pain. She states her chest pain is different from yesterday. She has been congested for the past 3 days. She has had a decreased appetite. She feels lightheaded when she needs to have a bowel movement. She was unable to have a bowel movement today. She is nauseous. She denies any vomiting or cough. She denies being stressed recently. She denies any history of anxiety. She has Mirena in place. She is on ibuprofen for knee pain. She is a former smoker. She denies any history of blood clots. Her grandfather had a blood clot at 40. She has a history of asthma as a child. She was seen in the ED recently with abdominal pain. She was diagnosed with an ovarian cyst and UTI. She has finished her antibiotics. Source of History: patient Onset: 1 hour ago Position: other (global) Quality: other (SOB) Timing: other (persistent) Associated Symptoms: + chest pain, + nausea, No cough, No vomiting Note: Pt reports decreased appetite. Review of Systems See HPI for pertinent positives and negatives. A total of ten systems were reviewed and were otherwise negative. Past Medical & Surgical Medical Problems: (1) 35 weeks gestation of (2) 37 weeks gestation of (3) Abdominal pain (4) Arthritis of both knees (5) Cornea abrasion (6) First stage of labor established (7) Injury of right knee (8) Left anterior knee pain (9) Left ovarian cyst (10) Lumbar strain (11) Nausea vomiting and diarrhea (12) (13) Pyelonephritis complicating , antepartum (14) Right lower quadrant abdominal pain (15) UTI (lower urinary tract infection) (16) UTI (urinary tract infection) (17) Vomiting and diarrhea (18) Work related injury Family History FH: HTN (hypertension) FH: cancer FH: diabetes mellitus FH: kidney disease FH: seizures Social History Smoking Status: Never Smoker Drug Use: none Housing Status: lives with family Occupation Status: employed Current/Historical Medications Scheduled Levonorgestrel (Iud) (Mirena), 20 MCG INT UTER CONTINOUS Scheduled PRN Ibuprofen (Ibuprofen), 600 MG PO Q6H PRN for Pain Allergies Coded Allergies: No Known Allergies (Unverified , 09/19/17) Physical Exam Vital Signs Date Time Temp Pulse Resp B/P (MAP) Pulse Ox O2 Delivery O2 Flow Rate FiO2 09/21/17 00:25 86 18 148/90 97 09/20/17 22:55 90 18 131/79 98 Room Air 09/20/17 21:13 100 Room Air 09/20/17 21:03 108 09/20/17 21:02 95 Room Air 09/20/17 21:02 36.4 74 20 108/85 95 Room Air Physical Exam GENERAL: Awake, alert, very anxious-appearing, in no acute distress HENT: Normocephalic, atraumatic. Dry mucous membranes. EYES: Normal conjunctiva. Sclera non-icteric. NECK: Supple. No nuchal rigidity. FROM. No JVD. RESPIRATORY: Clear to auscultation. CARDIAC: Regular rate, normal rhythm. Extremities warm and well perfused. Pulses equal. ABDOMEN: Soft, non-distended. No tenderness to palpation. No rebound or guarding. No masses. RECTAL: Deferred. MUSCULOSKELETAL: Chest examination reveals no tenderness. The back is symmetrical on inspection without obvious abnormality. There is no CVA tenderness to palpation. No joint edema. LOWER EXTREMITIES: Calves are equal size bilaterally and non-tender. No edema. No discoloration. NEURO: Normal sensorium. No sensory or motor deficits noted. SKIN: No rash or jaundice noted. Medical Decision & Procedures ER Provider Diagnostic Interpretation: Radiology results as stated below per my review and radiologist interpretation: CHEST ONE VIEW PORTABLE CLINICAL HISTORY: Atypical chest pain COMPARISON STUDY: No previous studies for comparison. FINDINGS: The cardiac and mediastinal contours are normal. There is no evidence of focal pulmonary consolidation. There is no evidence of failure. No pleural effusions are visualized.[ IMPRESSION: No active disease in the chest. Electronically signed by: Alonso White M.D. 09/20/2017 10:15 PM Dictated Date/Time: 09/20/2017 10:14 PM Laboratory Results 09/20/17 21:20 Red Blood Count 4.67, Mean Corpuscular Volume 92.5, Mean Corpuscular Hemoglobin 31.3, Mean Corpuscular Hemoglobin Concent 33.8, Mean Platelet Volume 10.0, Neutrophils (%) (Auto) 65.0, Lymphocytes (%) (Auto) 21.0, Monocytes (%) (Auto) 11.1, Eosinophils (%) (Auto) 2.4, Basophils (%) (Auto) 0.3, Neutrophils # (Auto ) 5.64, Lymphocytes # (Auto) 1.83, Monocytes # (Auto) 0.97, Eosinophils # (Auto ) 0.21, Basophils # (Auto) 0.03 09/20/17 21:20 Test 09/20/17 21:20 09/20/17 22:50 White Blood Count 8.70 K/uL (4.8-10.8) Red Blood Count 4.67 M/uL (4.2-5.4) Hemoglobin 14.6 g/dL (12.0-16.0) Hematocrit 43.2 % (37-47) Mean Corpuscular Volume 92.5 fL (80-100) Mean Corpuscular Hemoglobin 31.3 pg (25-34) Mean Corpuscular Hemoglobin Concent 33.8 g/dl (32-36) Platelet Count 369 K/uL (130-400) Mean Platelet Volume 10.0 fL (7.4-10.4) Neutrophils (%) (Auto) 65.0 % Lymphocytes (%) (Auto) 21.0 % Monocytes (%) (Auto) 11.1 % Eosinophils (%) (Auto) 2.4 % Basophils (%) (Auto) 0.3 % Neutrophils # (Auto) 5.64 K/uL (1.4-6.5) Lymphocytes # (Auto) 1.83 K/uL (1.2-3.4) Monocytes # (Auto) 0.97 K/uL (0.11-0.59) Eosinophils # (Auto) 0.21 K/uL (0-0.5) Basophils # (Auto) 0.03 K/uL (0-0.2) RDW Standard Deviation 45.1 fL (36.4-46.3) RDW Coefficient of Variation 13.3 % (11.5-14.5) Immature Granulocyte % (Auto) 0.2 % Immature Granulocyte # (Auto) 0.02 K/uL (0.00-0.02) D-Dimer 200 ug/L FEU (0-500) Anion Gap 11.0 mmol/L (3-11) Est Creatinine Clear Calc Drug Dose 116.6 ml/min Estimated GFR () 124.4 Estimated GFR (Non- 107.3 BUN/Creatinine Ratio 10.4 (10-20) Calcium Level 8.9 mg/dl (8.5-10.1) Total Bilirubin 0.4 mg/dl (0.2-1) Direct Bilirubin < 0.1 mg/dl (0-0.2) Aspartate Amino Transf (AST/SGOT) 16 U/L (15-37) Alanine Aminotransferase (ALT/SGPT) 20 U/L (12-78) Alkaline Phosphatase 67 U/L (45-117) Troponin I < 0.015 ng/ml (0-0.045) Total Protein 7.6 gm/dl (6.4-8.2) Albumin 3.6 gm/dl (3.4-5.0) Lipase 150 U/L (73-393) Thyroid Stimulating Hormone (TSH) 2.470 uIu/ml (0.300-4.500) Urine Color YELLOW Urine Appearance CLEAR (CLEAR) Urine pH >= 9.0 (4.5-7.5) Urine Specific [place] 1.015 (1.000-1.030) Urine Protein NEG (NEG) Urine Glucose (UA) NEG (NEG) Urine Ketones NEG (NEG) Urine Occult Blood TRACE (NEG) Urine Nitrite NEG (NEG) Urine Bilirubin NEG (NEG) Urine Urobilinogen NEG (NEG) Urine Leukocyte Esterase TRACE (NEG) Urine WBC (Auto) 5-10 /hpf (0-5) Urine RBC (Auto) 10-30 /hpf (0-4) Urine Hyaline Casts (Auto) 0 /lpf (0-5) Urine Epithelial Cells (Auto) >30 /lpf (0-5) Urine Bacteria (Auto) NEG (NEG) Urine Test NEG (NEG) Laboratory results reviewed by me Medications Administered Medications (Trade) Dose Ordered Sig/Tani Route Start Time Stop Time Status Last Admin Dose Admin Sodium Chloride 1,000 ml @ 999 mls/hr Q1H1M STAT IV 09/20/17 21:06 09/20/17 22:06 DC 09/20/17 21:40 999 MLS/HR Ketorolac Tromethamine (Toradol Inj) 15 mg NOW STAT IV 09/20/17 21:06 09/20/17 21:12 DC 09/20/17 21:42 15 MG Lorazepam (Ativan Inj) 1 mg NOW STAT IV 09/20/17 21:06 09/20/17 21:12 DC 09/20/17 21:42 1 MG ECG Indication: SOB/dyspnea Rate (beats per minute): 67 Rhythm: normal sinus (with sinus arrythmia) Findings: no acute ischemic change, other (normal axis, no ND depression, no spodick sign) ED Course 2101: The patient was evaluated in room C6. A complete history and physical exam was performed. 2311: I reevaluated the patient. She states she is doing better, but still having pain. Her heart rate is in the low 100's. She will get a D dimer and be discharged home if negative. Patient and family are in agreement with the plan. Medical Decision I reviewed the patient's past medical history, medications, and the nursing notes as described above. Differential diagnosis: Etiologies such as premature contractions, electrolyte abnormality, cardiac dysrhythmia, thyroid dysfunction, pulmonary embolism, infection, gastrointestinal, as well as others were entertained. The patient is a 27-year-old woman who presents emergency Department with chest pain and shortness of breath which occurred fully prior to arrival in the setting being seen in the emergency department yesterday for similar symptoms per history of present illness. Arrival the patient is anxious appearing but in no acute distress, afebrile stable vital signs. Labs unremarkable including WBC and troponin within normal limits in the setting of constant pain. EKG unremarkable with no ST elevations or ND depressions. Negative Spodick sign making pericarditis unlikely given the patient's reproducible chest pain with palpation. Chest x-ray negative. Patient is not on OCPs rather she has a Merena IUD. On initial evaluation the patient would be PERC negative making PE unlikley, however upon reevaluation the patient did have a heart rate in the low 100s, which may be related to anxiety however will send d-dimer. D-dimer and TSH negative, thus sx likely secondary to anxiety/panic attack. Findings and plan for follow-up reviewed with patient. Patient agreeable and d/c'd per discharge instructions. Medication Reconcilliation Current Medication List: was personally reviewed by me Blood Pressure Screening Patient's blood pressure: Normal blood pressure Blood pressure disposition: Did not require urgent referral Impression Primary Impression: Substernal chest pain Additional Impression: Panic attack Scribe Attestation The scribe's documentation has been prepared under my direction and personally reviewed by me in its entirety. I confirm that the note above accurately reflects all work, treatment, procedures, and medical decision making performed by me. Departure Information Dispostion Home / Self-Care Referrals Sofia Shelton,PRukhsanaA. (PCP) Patient Instructions ED Chest Pain Atypical Unkn Cause, ED Panic Attack, My [facility] Additional Instructions Please follow up with your primary care physician in the next 1-3 days for re- evaluation. Your symptoms are most likely due to anxiety/panic attack. Otherwise, your exam, EKG, chest xray, and lab results did not show signs of an emergent condition at this time. Return to the emergency department for worsening symptoms as described in the accompanying instructions. Problem Qualifiers
[2017-09-21 00:25] VITALS: BP 148/90; PULSE 86; O2SAT 97
== END 2017-09-21 00:25 | disposition home or self-care (01) ==
LOC: EDBD 20:49 → C.EDC 20:51
DX: R07.2 Precordial pain (principal); F41.0 Panic disorder [episodic paroxysmal anxiety]; N83.202 Unspecified ovarian cyst, left side; Z87.440 Personal history of urinary (tract) infections; M17.11 Unilateral primary osteoarthritis, right knee; M17.12 Unilateral primary osteoarthritis, left knee; Z82.49 Family history of ischemic heart disease and other diseases of the circulatory system; Z80.9 Family history of malignant neoplasm, unspecified; Z83.3 Family history of diabetes mellitus; Z84.1 Family history of disorders of kidney and ureter; Z82.0 Family history of epilepsy and other diseases of the nervous system

== ENCOUNTER 2022-07-26 17:11 | Observation (INO) ==
[2022-07-26] MEDS ORDERED: KETOROLAC TROMETHAMINE 15 MG/ML VIAL IV STA (17:47)
[2022-07-26] MEDS ORDERED: MoRPHine SULFATE 4 MG/ML 1 ML CARP\\VIAL IV STA (17:47)
[2022-07-26] MEDS ORDERED: ONDANSETRON INJ 2 MG/ML 2 ML VIAL IV STA (17:47)
[2022-07-26 17:53] LABS: iSTAT Creatinine 0.5 mg/dl (0.6-1.3); iSTAT Hemoglobin 13.9 g/dl (12.0-16.0); iSTAT Ionized Calcium 1.2 mmol/l (1.12-1.32); iSTAT Potassium 3.3 mmol/L (3.3-5.0)
--- NOTE | 2022-07-26 17:55 | Emergency Department Note ---
Impression & Plan Missed with demise before 20 completed weeks of gestation, Vaginal hemorrhage, Acute hypotension ED Provider Note CHIEF COMPLAINT: Heavy vaginal bleeding x1 hour HISTORY OF PRESENT ILLNESS: Patient is a 32-year-old female who presents emergency department for evaluation of a suspected miscarriage. She has not had a period since the beginning of March, but has not taken a test to confirm current . She just assumed that she was . She has not sought obstetric evaluation. Current would make her G4, P2 Ab1. Estimated last menstrual period in the beginning of March would put her around 20 weeks. She developed some minor cramping last evening, then some faint spotting that started this morning around 0930. It became much heavier in the last hour to 90 minutes, she began passing large clots, and experiencing increased pelvic pain and cramping. She rated her discomfort a 8/10 in triage. She was feeling weak and dizzy in the car but no leticia syncope. She is complaining of a headache currently as well. Prior miscarriage was around 12 weeks and she was able to complete the miscarriage without intervention. Patient upon arrival was bleeding quite heavily. She went directly into the bathroom. She passed large clots on the bathroom floor, in her underwear and into the toilet. Her significant other also felt that she passed "fetus and placenta", but it is believed that this was inadvertently flushed down the toilet. REVIEW OF SYSTEMS: Review of systems as per HPI. All other systems reviewed were negative. 10 systems reviewed. PMH: Electronic medical records are reviewed and summarized as above/below. See Problem List. SOCIAL HISTORY: Patient lives at home. She does not smoke. PHYSICAL EXAM: Vital Signs: Reviewed Nurse's notes. CONSTITUTIONAL: Patient is a well-appearing 32-year-old female who is awake and alert and in no acute distress. EYES: Pupils equal, round, reactive to light and accommodation. EOMs intact without nystagmus. Sclera are anicteric. ENT: Tympanic membranes intact, with normal landmarks. External canals are clear. Oral and nasopharynx are clear. Mucous membranes are moist, no lesions, tongue and gums appear normal. CARDIOVASCULAR: Regular rate and rhythm. Peripheral pulses easily palpable. RESPIRATORY: Breath sounds equal and clear to auscultation. ABDOMEN: Bowel sounds are present. The abdomen is soft, obese, mildly tender to palpation across the lower abdomen without guarding or rebound. : Speculum exam was performed, cervix was unable to be visualized. There was a large amount of blood and clot in the vaginal vault. I did apply some pr essure over the uterus, and was able to express some additional clot from the vagina. Pulled additional clots out with the large Q-tips. Was not able to visualize the cervix. There was no active pulsatile bleeding out the vagina. INTEGUMENTARY: No lesions or rash, normal skin turgor. LYMPH: No lymphadenopathy. EMERGENCY DEPARTMENT COURSE: The patient was seen and assessed as above. Old records are reviewed. She has not taken a test to confirm but she has not had a menstrual cycle since the beginning of March. This puts her around roughly 20 weeks. She does appear to be miscarrying. There were reports that she may be passed some tissue or products of conception when in the bathroom but does not appear that we were able to collect those for analysis. An i-STAT was performed, hemoglobin and hematocrit were 13.9 and 41. IV lock was initiated and blood work was collected. She was given a total 2 L of normal saline solution initially. She was ordered morphine, Toradol and Zofran for pain. She was given the Toradol initially, as her pressures were on the low side, but she did not have good relief with the Toradol, therefore the morphine was administered after the bedside ultrasound had been performed. She is confirmed O+ from prior records, Rhophylac was ordered. A pelvic ultrasound was obtained. Laboratory studies note a mildly elevated white count of 2800. H&H on venipuncture was 14.1 and 41.1, platelet count is 382,000. Electrolytes and renal functions are normal. Her quantitative hCG is 6128. Blood type confirmed as O- and RhoGAM was administered. Nursing staff contacted me about 30 minutes after the morphine that the patient had become hypotensive and bradycardic. Heart rate was in the 40s. Systolic blood pressure was in the 60s, and she was quite symptomatic with this. An additional liter of NS and 1 L of LR were hung wide open. She was placed in Trendelenburg. She was reassessed by myself and Dr. Miller. Pressures improved slightly with the fluid bolus, her systolic came up to the 90s. A repeat i-STAT was obtained at this time, and hemoglobin had dropped to 9.2. Pelvic ultrasound notes a large amount of heterogenous material in the endometrium and cervix, likely representing blood products. Cervix is dilated. There is a 4.5 cm uterine fibroid. No intrauterine gestational sac or pole was identified. Laboratory studies and ultrasound findings were reviewed with the patient. She is aware that I am going to consult with gynecology. Given the patient's amount of blood loss and her unstable vital signs I did place a consultation with [facility], Dr. Ledbetter, who came down to the emergency department and evaluated the patient. She will take the patient to the OR for a D&E. Please refer to her gynecologic consultation/H&P for further information and orders. Differential diagnoses considered included spontaneous versus threatened versus septic versus incomplete , retained products of conception, coagulopathy, vaginal or cervical laceration, acute blood loss anemia, among others. Past Med/Surg History Medical History Anxiety Arthritis of both knees Morbid obesity Ovarian cyst Uterine fibroid Surgical History No history of previous surgery Family History (Updated 05/31/19 @ 09:[address]) Grandmother (Maternal) Colorectal cancer Diabetes Kidney disease Liver cancer Father Diabetes Mother Hypertension Dyslipidemia Other No pertinent family history Social History Smoking Status: Never smoker Preferred Language: Setswana marital status: Single marital status details: MCDavis Terry Robertler (26) [phone] Current Living Situation: Significant Other Current Living Situation Comment: lives with mom, dad, brother, FOB, and son. current occupational status: employed current occupation: Mail Clerk at [employer] Feels Safe at Home: Yes Allergies Allergies Allergy/AdvReac Type Severity Reaction Status Date / Time No Known Allergies Allergy Verified 07/26/22 17:59 Home Meds Home Medications Medication Instructions Recorded Confirmed acetaminophen 500 mg tablet 1,000 mg PO DIRECTED PRN Pain 07/26/22 07/26/22 (Tylenol Extra Strength) Results & Data (ED) Vital Signs Vital Signs - 24 hr 07/26/22 17:13 07/26/22 17:44 07/26/22 19:17 Temperature 36.9 C Temperature Source Oral Pulse Rate 61 73 70 Pulse Rate from SpO2 Sensor Pulse Rhythm Regular Regular Pulse Strength Normal Respiratory Rate 18 20 18 Respiratory Effort / Characteristics Non-Labored Spontaneous Respiratory Depth Normal Respiratory Pattern Regular Blood Pressure 105/66 105/58 L Blood Pressure Mean 79 73 Blood Pressure Position Sitting Pulse Oximetry 97 99 100 Oxygen Delivery Method Room Air Room Air Sepsis Recent Fever Within 48 Hours No Sepsis New/Unexplained Change in Mental Status No Sepsis Action Taken by Nursing No Action Required 07/26/22 17:37 07/26/22 17:40 07/26/22 17:50 Temperature Temperature Source Pulse Rate 66 63 99 H Pulse Rate from SpO2 Sensor 71 65 99 H Pulse Rhythm Pulse Strength Respiratory Rate 23 20 19 Respiratory Effort / Characteristics Respiratory Depth Respiratory Pattern Blood Pressure Blood Pressure Mean Blood Pressure Position Pulse Oximetry 96 99 100 Oxygen Delivery Method Sepsis Recent Fever Within 48 Hours Sepsis New/Unexplained Change in Mental Status Sepsis Action Taken by Nursing 07/26/22 17:52 07/26/22 17:52 07/26/22 18:00 Temperature Temperature Source Pulse Rate 109 H Pulse Rate from SpO2 Sensor 110 H Pulse Rhythm Pulse Strength Respiratory Rate 22 Respiratory Effort / Characteristics Respiratory Depth Respiratory Pattern Blood Pressure 101/77 114/65 Blood Pressure Mean 85 81 Blood Pressure Position Pulse Oximetry 98 Oxygen Delivery Method Sepsis Recent Fever Within 48 Hours Sepsis New/Unexplained Change in Mental Status Sepsis Action Taken by Nursing 07/26/22 18:00 07/26/22 18:10 07/26/22 18:20 Temperature Temperature Source Pulse Rate 70 88 71 Pulse Rate from SpO2 Sensor 70 71 Pulse Rhythm Pulse Strength Respiratory Rate 18 26 H 15 Respiratory Effort / Characteristics Respiratory Depth Respiratory Pattern Blood Pressure Blood Pressure Mean Blood Pressure Position Pulse Oximetry 100 100 Oxygen Delivery Method Sepsis Recent Fever Within 48 Hours Sepsis New/Unexplained Change in Mental Status Sepsis Action Taken by Nursing 07/26/22 18:30 07/26/22 18:30 07/26/22 18:40 Temperature Temperature Source Pulse Rate 70 73 Pulse Rate from SpO2 Sensor 70 74 Pulse Rhythm Pulse Strength Respiratory Rate 17 20 Respiratory Effort / Characteristics Respiratory Depth Respiratory Pattern Blood Pressure 101/59 L Blood Pressure Mean 73 Blood Pressure Position Pulse Oximetry 100 99 Oxygen Delivery Method Sepsis Recent Fever Within 48 Hours Sepsis New/Unexplained Change in Mental Status Sepsis Action Taken by Nursing 07/26/22 18:50 07/26/22 18:53 07/26/22 19:00 Temperature Temperature Source Pulse Rate 77 84 Pulse Rate from SpO2 Sensor 79 83 Pulse Rhythm Pulse Strength Respiratory Rate 18 20 Respiratory Effort / Characteristics Respiratory Depth Respiratory Pattern Blood Pressure 108/59 L Blood Pressure Mean 75 Blood Pressure Position Pulse Oximetry 100 100 Oxygen Delivery Method Sepsis Recent Fever Within 48 Hours Sepsis New/Unexplained Change in Mental Status Sepsis Action Taken by Nursing 07/26/22 19:12 07/26/22 19:16 07/26/22 19:16 Temperature Temperature Source Pulse Rate Pulse Rate from SpO2 Sensor 65 65 Pulse Rhythm Pulse Strength Respiratory Rate Respiratory Effort / Characteristics Respiratory Depth Respiratory Pattern Blood Pressure 105/58 L Blood Pressure Mean 73 Blood Pressure Position Pulse Oximetry 100 99 Oxygen Delivery Method Sepsis Recent Fever Within 48 Hours Sepsis New/Unexplained Change in Mental Status Sepsis Action Taken by Nursing 07/26/22 19:20 07/26/22 19:30 07/26/22 19:31 Temperature Temperature Source Pulse Rate Pulse Rate from SpO2 Sensor 66 69 67 Pulse Rhythm Pulse Strength Respiratory Rate Respiratory Effort / Characteristics Respiratory Depth Respiratory Pattern Blood Pressure Blood Pressure Mean Blood Pressure Position Pulse Oximetry 100 99 98 Oxygen Delivery Method Sepsis Recent Fever Within 48 Hours Sepsis New/Unexplained Change in Mental Status Sepsis Action Taken by Nursing 07/26/22 19:31 07/26/22 19:34 07/26/22 19:34 Temperature Temperature Source Pulse Rate Pulse Rate from SpO2 Sensor 52 L Pulse Rhythm Pulse Strength Respiratory Rate Respiratory Effort / Characteristics Respiratory Depth Respiratory Pattern Blood Pressure 68/39 L 66/27 L Blood Pressure Mean 48 40 Blood Pressure Position Pulse Oximetry 100 Oxygen Delivery Method Sepsis Recent Fever Within 48 Hours Sepsis New/Unexplained Change in Mental Status Sepsis Action Taken by Nursing 07/26/22 19:37 07/26/22 19:37 07/26/22 19:40 Temperature Temperature Source Pulse Rate 45 L Pulse Rate from SpO2 Sensor 45 L Pulse Rhythm Pulse Strength Respiratory Rate 21 Respiratory Effort / Characteristics Respiratory Depth Respiratory Pattern Blood Pressure 55/25 L 76/36 L Blood Pressure Mean 35 49 Blood Pressure Position Pulse Oximetry 100 Oxygen Delivery Method Sepsis Recent Fever Within 48 Hours Sepsis New/Unexplained Change in Mental Status Sepsis Action Taken by Nursing 07/26/22 19:40 07/26/22 19:43 07/26/22 19:43 Temperature Temperature Source Pulse Rate 50 L 52 L Pulse Rate from SpO2 Sensor 50 L 52 L Pulse Rhythm Pulse Strength Respiratory Rate 23 16 Respiratory Effort / Characteristics Respiratory Depth Respiratory Pattern Blood Pressure 83/46 L Blood Pressure Mean 58 Blood Pressure Position Pulse Oximetry 100 94 Oxygen Delivery Method Sepsis Recent Fever Within 48 Hours Sepsis New/Unexplained Change in Mental Status Sepsis Action Taken by Nursing 07/26/22 19:45 07/26/22 19:45 07/26/22 19:48 Temperature Temperature Source Pulse Rate 59 L 55 L Pulse Rate from SpO2 Sensor 60 56 L Pulse Rhythm Pulse Strength Respiratory Rate 18 22 Respiratory Effort / Characteristics Respiratory Depth Respiratory Pattern Blood Pressure 65/48 L Blood Pressure Mean 53 Blood Pressure Position Pulse Oximetry 100 100 Oxygen Delivery Method Sepsis Recent Fever Within 48 Hours Sepsis New/Unexplained Change in Mental Status Sepsis Action Taken by Nursing 07/26/22 19:48 07/26/22 19:50 07/26/22 19:50 Temperature Temperature Source Pulse Rate 61 Pulse Rate from SpO2 Sensor 60 Pulse Rhythm Pulse Strength Respiratory Rate 22 Respiratory Effort / Characteristics Respiratory Depth Respiratory Pattern Blood Pressure 99/50 L 88/47 L Blood Pressure Mean 66 60 Blood Pressure Position Pulse Oximetry 100 Oxygen Delivery Method Sepsis Recent Fever Within 48 Hours Sepsis New/Unexplained Change in Mental Status Sepsis Action Taken by Nursing 07/26/22 19:55 07/26/22 19:55 07/26/22 20:00 Temperature Temperature Source Pulse Rate 59 L Pulse Rate from SpO2 Sensor 57 L Pulse Rhythm Pulse Strength Respiratory Rate 13 Respiratory Effort / Characteristics Respiratory Depth Respiratory Pattern Blood Pressure 94/42 L 95/52 L Blood Pressure Mean 59 66 Blood Pressure Position Pulse Oximetry 100 Oxygen Delivery Method Sepsis Recent Fever Within 48 Hours Sepsis New/Unexplained Change in Mental Status Sepsis Action Taken by Nursing 07/26/22 20:00 07/26/22 20:05 07/26/22 20:05 Temperature Temperature Source Pulse Rate 56 L 65 Pulse Rate from SpO2 Sensor 58 L 65 Pulse Rhythm Pulse Strength Respiratory Rate 20 18 Respiratory Effort / Characteristics Respiratory Depth Respiratory Pattern Blood Pressure 98/50 L Blood Pressure Mean 66 Blood Pressure Position Pulse Oximetry 100 100 Oxygen Delivery Method Sepsis Recent Fever Within 48 Hours Sepsis New/Unexplained Change in Mental Status Sepsis Action Taken by Nursing 07/26/22 20:10 07/26/22 20:11 07/26/22 20:11 Temperature Temperature Source Pulse Rate 67 75 Pulse Rate from SpO2 Sensor 66 76 Pulse Rhythm Pulse Strength Respiratory Rate 15 13 Respiratory Effort / Characteristics Respiratory Depth Respiratory Pattern Blood Pressure 92/62 L Blood Pressure Mean 72 Blood Pressure Position Pulse Oximetry 100 98 Oxygen Delivery Method Sepsis Recent Fever Within 48 Hours Sepsis New/Unexplained Change in Mental Status Sepsis Action Taken by Nursing 07/26/22 20:25 07/26/22 20:30 07/26/22 20:32 Temperature Temperature Source Pulse Rate 64 Pulse Rate from SpO2 Sensor 75 73 63 Pulse Rhythm Pulse Strength Respiratory Rate 12 Respiratory Effort / Characteristics Respiratory Depth Respiratory Pattern Blood Pressure Blood Pressure Mean Blood Pressure Position Pulse Oximetry 100 98 100 Oxygen Delivery Method Sepsis Recent Fever Within 48 Hours Sepsis New/Unexplained Change in Mental Status Sepsis Action Taken by Nursing 07/26/22 20:32 07/26/22 20:40 07/26/22 20:45 Temperature Temperature Source Pulse Rate 65 Pulse Rate from SpO2 Sensor 62 Pulse Rhythm Pulse Strength Respiratory Rate 17 Respiratory Effort / Characteristics Respiratory Depth Respiratory Pattern Blood Pressure 102/61 105/58 L Blood Pressure Mean 74 73 Blood Pressure Position Pulse Oximetry 100 Oxygen Delivery Method Sepsis Recent Fever Within 48 Hours Sepsis New/Unexplained Change in Mental Status Sepsis Action Taken by Nursing 07/26/22 20:45 07/26/22 20:50 Temperature Temperature Source Pulse Rate 73 70 Pulse Rate from SpO2 Sensor 74 69 Pulse Rhythm Pulse Strength Respiratory Rate 17 26 H Respiratory Effort / Characteristics Respiratory Depth Respiratory Pattern Blood Pressure Blood Pressure Mean Blood Pressure Position Pulse Oximetry 100 99 Oxygen Delivery Method Sepsis Recent Fever Within 48 Hours Sepsis New/Unexplained Change in Mental Status Sepsis Action Taken by [facility]sp Medications Current Medication List: was personally reviewed by me Laboratory Data Attestation: I reviewed the patient's lab results. Result diagrams: 07/26/22 17:33 07/26/22 17:33 Lab Results 07/26/22 07/26/22 07/26/22 Range/Units 17:33 17:33 17:33 WBC 11.85 H (4.8-10.8) K/ul RBC 4.46 (3.93-5.22) M/uL Hgb 14.1 (12.0-16.0) g/dl POC Hgb (12.0-16.0) g/dl Hct 41.1 (34.1-44.9) % POC Hct (37-47) % MCV 92.2 (80.0-100.0) fL MCH 31.6 (25.0-34.0) pg MCHC 34.3 (32.0-36.0) g/dL RDW Std Deviation 43.2 (36.4-46.3) fL RDW Coeff of Tanya 12.9 (11.5-14.5) % Plt Count 382 (130-400) K/uL MPV 9.6 (9.4-12.3) fL Immature Gran % (Auto) 0.3 % Neut % (Auto) 68.4 % Lymph % (Auto) 24.2 % Dunn % (Auto) 6.0 % Eos % (Auto) 0.8 % Baso % (Auto) 0.3 % Neut # (Auto) 8.11 H (1.4-6.5) K/uL Lymph # (Auto) 2.87 (1.2-3.4) K/uL Dunn # (Auto) 0.71 (0.24-0.82) K/uL Eos # (Auto) 0.10 (0-0.50) K/uL Baso # (Auto) 0.03 (0-0.2) K/uL Immature Gran # (Auto) 0.03 H (0.00-0.02) K/uL POC Sodium (135-144) mmol/L Sodium 137 (136-145) mmol/L POC Potassium (3.3-5.0) mmol/L Potassium 3.3 L (3.5-5.1) mmol/L POC Chloride (101-112) mmol/L Chloride 107 (98-107) mmol/L Carbon Dioxide 21 (21-32) mmol/L POC Total CO2 (24-31) mmol/L Anion Gap 9 (3-11) POC Anion Gap (16-25) mmol/L POC BUN (7-18) mg/dl BUN 6 (6-23) mg/dl Creatinine 0.55 L (0.6-1.2) mg/dl POC Creatinine (0.6-1.3) mg/dl Est Cr Clr Drug Dosing 165.7 ml/min Est GFR ( Amer) 145.9 ml/min Est GFR (Non-Af Amer) 125.9 ml/min BUN/Creatinine Ratio 10.9 (10-20) Glucose 107 H (70-99(Fasting)) mg/dl POC Glucose (other) (70-99) mg/dl Calcium 8.9 (8.5-10.1) mg/dl POC Ioniz Calcium Stephanie (1.12-1.32) mmol/l Total Bilirubin 0.4 (0.2-1.0) mg/dl AST 11 L (13-39) U/L ALT 8 (7-52) U/L Alkaline Phosphatase 48 (34-104) U/L Total Protein 6.5 (6.0-8.3) gm/dl Albumin 3.8 (3.4-5.0) gm/dl Globulin 2.7 (2.5-4.0) gm/dl Albumin/Globulin Ratio 1.4 (0.9-2) HCG, Quant mIU/ml Blood Type O Negative Antibody Screen NEGATIVE Crossmatch See Detail 07/26/22 07/26/22 07/26/22 Range/Units 17:33 17:38 19:48 WBC (4.8-10.8) K/ul RBC (3.93-5.22) M/uL Hgb (12.0-16.0) g/dl POC Hgb 13.9 9.2 L (12.0-16.0) g/dl Hct (34.1-44.9) % POC Hct 41 27 L (37-47) % MCV (80.0-100.0) fL MCH (25.0-34.0) pg MCHC (32.0-36.0) g/dL RDW Std Deviation (36.4-46.3) fL RDW Coeff of Tanya (11.5-14.5) % Plt Count (130-400) K/uL MPV (9.4-12.3) fL Immature Gran % (Auto) % Neut % (Auto) % Lymph % (Auto) % Dunn % (Auto) % Eos % (Auto) % Baso % (Auto) % Neut # (Auto) (1.4-6.5) K/uL Lymph # (Auto) (1.2-3.4) K/uL Dunn # (Auto) (0.24-0.82) K/uL Eos # (Auto) (0-0.50) K/uL Baso # (Auto) (0-0.2) K/uL Immature Gran # (Auto) (0.00-0.02) K/uL POC Sodium 138 137 (135-144) mmol/L Sodium (136-145) mmol/L POC Potassium 3.3 3.6 (3.3-5.0) mmol/L Potassium (3.5-5.1) mmol/L POC Chloride 108 110 (101-112) mmol/L Chloride (98-107) mmol/L Carbon Dioxide (21-32) mmol/L POC Total CO2 19 L 16 L (24-31) mmol/L Anion Gap (3-11) POC Anion Gap 15.0 L 16.0 (16-25) mmol/L POC BUN 4 L 4 L (7-18) mg/dl BUN (6-23) mg/dl Creatinine (0.6-1.2) mg/dl POC Creatinine 0.5 L 0.4 L (0.6-1.3) mg/dl Est Cr Clr Drug Dosing ml/min Est GFR ( Amer) ml/min Est GFR (Non-Af Amer) ml/min BUN/Creatinine Ratio (10-20) Glucose (70-99(Fasting)) mg/dl POC Glucose (other) 108 H 103 H (70-99) mg/dl Calcium (8.5-10.1) mg/dl POC Ioniz Calcium Stephanie 1.20 0.96 L (1.12-1.32) mmol/l Total Bilirubin (0.2-1.0) mg/dl AST (13-39) U/L ALT (7-52) U/L Alkaline Phosphatase (34-104) U/L Total Protein (6.0-8.3) gm/dl Albumin (3.4-5.0) gm/dl Globulin (2.5-4.0) gm/dl Albumin/Globulin Ratio (0.9-2) HCG, Quant 6128 mIU/ml Blood Type Antibody Screen Crossmatch Administered Medications Discontinued Medications Sodium Chloride (Nss 1000ml) 1,000 mls @ 999 mls/hr IV .Q1H1M MILLICENT Stop: 07/26/22 19:48 Last Admin: 07/26/22 18:15 Dose: 999 mls/hr Documented By: Infusion: 07/26/22 18:15 Dose: 999 mls/hr Documented By: Admin: 07/26/22 18:09 Dose: 999 mls/hr Documented By: IRWIN Lactated Ringer's (Lr) 1,000 mls @ 999 mls/hr IV .Q1H1M ONE Stop: 07/26/22 20:44 Last Admin: 07/26/22 19:45 Dose: 999 mls/hr Documented By: ADRIÁN Sodium Chloride (Nss 1000ml) 1,000 mls @ 999 mls/hr IV .Q1H1M MILLICENT Stop: 07/26/22 20:45 Last Admin: 07/26/22 19:45 Dose: 999 mls/hr Documented By: ADRIÁN Tranexamic Acid (Tranexamic Acid / 0.7% Nacl) 1,000 mg in 100 mls @ 600 mls/hr IV NOW STA Stop: 07/26/22 20:44 Last Admin: 07/26/22 20:48 Dose: 600 mls/hr Documented By: ADRIÁN Ketorolac Tromethamine (Ketorolac Tromethamine 15 Mg/Ml Vial) 15 mg IV NOW STA Stop: 07/26/22 17:48 Last Admin: 07/26/22 17:59 Dose: 15 mg Documented By: JUD Morphine Sulfate (Morphine Sulfate 4 Mg/Ml 1 Ml Carp\\Vial) 4 mg IV NOW STA Stop: 07/26/22 17:48 Last Admin: 07/26/22 19:10 Dose: 4 mg Documented By: ADRIÁN Ondansetron HCl (Ondansetron Inj 2 Mg/Ml 2 Ml Vial) 4 mg IV NOW STA Stop: 07/26/22 17:48 Last Admin: 07/26/22 17:59 Dose: 4 mg Documented By: JUD Imaging Data Attestation: I personally reviewed and interpreted this imaging study as follows: Radiologist's Impression: Obstetrics Ultrasound 07/26/22 17:47 US OB limited CLINICAL HISTORY: BLEEDING, SPON COMPARISON STUDY: Pelvic ultrasound 08/01/2017. FINDINGS: The uterus is enlarged measuring 18 x 8 x 5 cm. The endometrium is thickened and heterogeneous measuring up to 3.2 cm in thickness. There is also a large amount of abnormal heterogeneous material within the cervix.. This results in distention of the cervix. There is a 4.5 cm uterine fibroid. No intrauterine gestational sac or pole identified. Right ovary was not identified. The left ovary is unremarkable. IMPRESSION: 1. Large amount of heterogeneous material within the endometrium and cervix. This is indeterminate but could represent blood products. A molar is considered less likely but not entirely excluded. Gynecologic consultation recommended. 2. No intrauterine gestational sac or pole identified. ACT 112: Negative or not required by law. Electronically signed by: Bandar Gaffney M.D. 07/26/2022 7:23 PM Discharge Plan Visit Data Chief Complaint: Vaginal Bleeding Stated Complaint: MISCARRIAGE, VAGINAL BLEEDING, FEELS WEAK ED Provider: Juve Miller ED Midlevel Provider: Froy Alas Discharge Problem: Missed with demise before 20 completed weeks of gestation, Vaginal hemorrhage, Acute hypotension Patient Disposition: Being Evaluated by Surgeon Forms Stand Alone Forms: My [facility] [employer] Prescriptions Prescriptions: No Action acetaminophen [Tylenol Extra Strength] 500 mg Tablet 1,000 mg PO DIRECTED PRN (Reason: Pain) Referrals Referrals: PCP,NO [Physician] - Critical Care Time Critical Care Time Critical Care Time: Yes Total Critical Care Time: 30 Attestation: I have personally spent greater than 30 minutes of critical care time in the direct management of this patient. This includes bedside care, interpretation of diagnostic studies, and testing, discussion with consultants, patient, and f amily members, and other required patient management activities. This 30 minutes is in excess of all separately billable procedures.
[2022-07-26] MEDS: SODIUM CHLORIDE 0.9% 1000ML 1,000 ML IV SCH ×2 (18:09→18:15)
[2022-07-26 18:18] LABS: Basophils # (auto) 0.03 K/uL (0-0.2); Basophils % (auto) 0.3 %; Eosinophils % (auto) 0.8 %; Hematocrit (blood only) 41.1 % (34.1-44.9); Hemoglobin 14.1 g/dl (12.0-16.0); Immature Granulocytes # (auto) 0.03 K/uL (0.00-0.02); Immature Granulocytes % (auto) 0.3 %; Lymphocytes # (auto) 2.87 K/uL (1.2-3.4); Lymphocytes % (auto) 24.2 %; Mean Corpuscular Hemoglobin 31.6 pg (25.0-34.0); Mean Corpuscular Hgb Conc 34.3 g/dL (32.0-36.0); Mean Corpuscular Volume 92.2 fL (80.0-100.0); Mean Platelet Volume 9.6 fL (9.4-12.3); Monocytes # (auto) 0.71 K/uL (0.24-0.82); Neutrophils # (auto) 8.11 K/uL (1.4-6.5); Neutrophils % (auto) 68.4 %; Platelet Count 382 K/uL (130-400); RDW Coefficient of Variation 12.9 % (11.5-14.5); RDW Standard Deviation 43.2 fL (36.4-46.3); Red Blood Count 4.46 M/uL (3.93-5.22); White Blood Count 11.85 K/ul (4.8-10.8)
[2022-07-26 18:31] LABS: Albumin Globulin Ratio 1.4 (0.9-2); Albumin Level 3.8 gm/dl (3.4-5.0); BUN Creatinine Ratio 10.9 (10-20); Bilirubin,Total 0.4 mg/dl (0.2-1.0); Calcium 8.9 mg/dl (8.5-10.1); Creatinine Clr Calc Pharmacy 165.7 ml/min; Est GFR (African American) 145.9 ml/min; Est GFR (Non-African American) 125.9 ml/min; Globulin 2.7 gm/dl (2.5-4.0); Potassium 3.3 mmol/L (3.5-5.1); Total Protein 6.5 gm/dl (6.0-8.3)
--- NOTE | 2022-07-26 19:25 | Ultrasound Report ---
US OB limited CLINICAL HISTORY: BLEEDING, SPON COMPARISON STUDY: Pelvic ultrasound 08/01/2017. FINDINGS: The uterus is enlarged measuring 18 x 8 x 5 cm. The endometrium is thickened and heterogene ous measuring up to 3.2 cm in thickness. There is also a large amount of abnormal heterogeneous mater ial within the cervix.. This results in distention of the cervix. There is a 4.5 cm uterine fibroid. No intrauterine gestational sac or pole identified. Right ovary was not identified. The left ov indra is unremarkable. IMPRESSION: 1. Large amount of heterogeneous material within the endometrium and cervix. This is indeterminate bu t could represent blood products. A molar is considered less likely but not entirely exclud ed. Gynecologic consultation recommended. 2. No intrauterine gestational sac or pole identified. ACT 112: Negative or not required by law. Electronically signed by: Bandar Gaffney M.D. 07/26/2022 7:23 PM
[2022-07-26] MEDS ORDERED: LACTATED RINGER'S 1,000 ML IV ONE (19:44)
[2022-07-26] MEDS ORDERED: SODIUM CHLORIDE 0.9% 1000ML 1,000 ML IV SCH (19:45)
--- NOTE | 2022-07-26 19:53 | Emergency Department Note ---
ED Visit Note I was consulted by the Advanced Practice Provider. I saw the patient personally and performed a substantive portion of the visit. This includes aspects of the HPI, MDM, diagnostic interpretations, and disposition/plan. The patient had a spontaneous . She was the treated as noted in the LOUANN note. The patient was having abdominal discomfort and was treated with a dose of morphine. Patient had an episode of hypotension and bradycardia. She was reassessed by me as well as Mulu Alas PA-C. She was given additional fluid boluses. Her blood pressure improved. In light of the situation further management in the hospital was felt to be appropriate. Consultation was made with [facility] for further management. .
[2022-07-26 19:59] LABS: iSTAT Creatinine 0.4 mg/dl (0.6-1.3); iSTAT Hemoglobin 9.2 g/dl (12.0-16.0); iSTAT Ionized Calcium 0.96 mmol/l (1.12-1.32); iSTAT Potassium 3.6 mmol/L (3.3-5.0)
[2022-07-26] MEDS ORDERED: TRANEXAMIC ACID / 0.7% NACL 1,000 MG/100 ML BAG IV STA (20:35)
[2022-07-26] MEDS ORDERED: SODIUM CHLORIDE 0.9% 250 ML IV PRN (20:35)
--- NOTE | 2022-07-26 20:43 | History & Physical Report ---
Date of Service July 26, 2022 Assessment & Plan (1) Missed with demise before 20 completed weeks of gestation: Plan: 32 year old female presents following apparent 2nd trimester spontaneous with acute hemorrhage resulting in hypotension and hemoglobin drop from 14 to 9 she received 1 dose of TXA and will receive one unit of PRBC's as I feel her blood loss is more then initially assessed because of approximately 300cc of clot and blood still in the vaginal vault on inspection we will proceed to the OR for D&C/ D&E to be sure there is no further POC as the ultrasound shows a 3.2cm lining but a large amount of clot and possibly retained POC present. The procedure and it's risks were reviewed with the patient and her and all of their questions have been answered to her satisfaction she has already received rhogam because of her blood type is O negative. we will then watch her overnight to be sure she doesn't need any further blood transfusion and monitor for any further bleeding. (2) Acute hemorrhage: History of Present Illness Chief Complaint: [facility] Primary Care Provider: Armaan Forbes Allergies Allergy/AdvReac Type Severity Reaction Status Date / Time No Known Allergies Allergy Verified 07/26/22 17:59 Home Medications Medication Instructions Recorded Confirmed Type acetaminophen 500 mg tablet 1,000 mg PO DIRECTED PRN Pain 07/26/22 07/26/22 H istory (Tylenol Extra Strength) Patient History Medical History Anxiety Arthritis of both knees Morbid obesity Ovarian cyst Uterine fibroid Surgical History No history of previous surgery Family History (Updated 05/31/19 @ 09:[address]) Grandmother (Maternal) Colorectal cancer Diabetes Kidney disease Liver cancer Father Diabetes Mother Hypertension Dyslipidemia Other No pertinent family history Social History Smoking Status: Never smoker Preferred Language: Paragu[place] marital status: Single marital status details: MCDavis Terry Melani (26) [phone] Current Living Situation: Significant Other Current Living Situation Comment: lives with mom, dad, brother, FOB, and son. current occupational status: employed current occupation: Regional Truck Driver at [employer] Feels Safe at Home: Yes Review of Systems All systems reviewed & are unremarkable except as noted in HPI & below Physical Exam Constitutional: WD/WN, vitals as above Gastrointestinal (Abdomen): soft & nontender. fundus firm at about 14 weeks size Psychiatric: A+Ox3, euthymic affect Genitourinary: Manual OB Exam: + cervical dilation 1 cm at least 300cc- 500cc clot removed from vagina. one small piece of POC removed from the vagina. Results & Data ([facility]) Vital Signs (Past 12 Hours) Vital Signs Temp Pulse Resp BP Pulse Ox O2 Del Method 07/26/22 19:40 50 L 23 100 07/26/22 19:40 76/36 L 07/26/22 19:37 45 L 21 100 07/26/22 19:37 55/25 L 07/26/22 19:34 66/27 L 07/26/22 19:34 100 07/26/22 19:31 68/39 L 07/26/22 19:31 98 07/26/22 19:30 99 07/26/22 19:20 100 07/26/22 19:16 99 07/26/22 19:16 105/58 L 07/26/22 19:12 100 07/26/22 19:00 108/59 L 07/26/22 18:53 84 20 100 07/26/22 18:50 77 18 100 07/26/22 18:40 73 20 99 07/26/22 18:30 70 17 100 07/26/22 18:30 101/59 L 07/26/22 18:20 71 15 100 07/26/22 18:10 88 26 H 07/26/22 18:00 70 18 100 07/26/22 18:00 114/65 07/26/22 17:52 101/77 07/26/22 17:52 109 H 22 98 07/26/22 17:50 99 H 19 100 07/26/22 17:40 63 20 99 07/26/22 17:37 66 23 96 07/26/22 19:17 70 18 105/58 L 100 07/26/22 17:44 73 20 99 Room Air 07/26/22 17:13 98.4 F 61 18 105/66 97 Room Air Coding Level of Care Code INT OBSERVATION CARE 50M LVL 2 Diagnoses Missed with demise before 20 completed weeks of gestation O02.1 Acute hemorrhage R58
[2022-07-26] MEDS ORDERED: LABETALOL HCL IV 5 MG/ML 20ML IV PRN (21:14)
[2022-07-26] MEDS ORDERED: fentaNYL citrate 100 MCG/2 ML VIAL IV PRN (21:14)
[2022-07-26] MEDS ORDERED: ATROPINE SULFATE 0.1 MG/ML 10ML SYR IV PRN (21:14)
[2022-07-26] MEDS ORDERED: ONDANSETRON INJ 2 MG/ML 2 ML VIAL IV PRN (21:14)
[2022-07-26] MEDS ORDERED: MEPERIDINE HCL 25 MG/ML CARP/VIAL IV PRN (21:14)
[2022-07-26] MEDS ORDERED: PHENYLEPHRINE 100MCG/ML 5ML SYR IV PRN (21:14)
[2022-07-26] MEDS ORDERED: ePHEDrine sulfate 50 MG/ML AMP IV PRN (21:14)
[2022-07-26] MEDS ORDERED: HYDROmorphone INJ 1 MG/ML SYRINGE IV PRN (21:14)
--- NOTE | 2022-07-26 21:16 | Anesthesiology Consultation ---
Date of Service July 26, 2022 Assessment & Plan (1) Encounter for pre-operative examination: Chart Review Chart Review: Acceptable Risk for Surgery (emergency surgery) and Patient NOT seen in Pre Admission Testing Consults Requested none History Surgery Operation Date: 07/26/22 21:30 Proposed Procedures p Dilatation and Evacuation - Jenae Boyle MD, FACOG Height/Weight Height: 5 ft 5 in Weight: 89.9 kg Allergies Allergy/AdvReac Type Severity Reaction Status Date / Time No Known Allergies Allergy Verified 07/26/22 17:59 Medications Home Medications Medication Instructions Recorded Confirmed Last Taken acetaminophen 500 mg tablet 1,000 mg PO DIRECTED PRN Pain 07/26/22 07/26/22 Unknown (Tylenol Extra Strength) Past Medical History Medical History Anxiety Arthritis of both knees Morbid obesity Obesity Ovarian cyst Uterine fibroid Past Family History Family History Grandmother (Maternal) Colorectal cancer Diabetes Kidney disease Liver cancer Father Diabetes Mother Hypertension Dyslipidemia Other No pertinent family history Past Surgical History Surgical History No history of previous surgery Social History Smoking Status: Never smoker Physical Exam Vital Signs Last Vital Signs Temp 36.9 C 07/26/22 17:13 Pulse 70 07/26/22 20:50 Resp 26 H 07/26/22 20:50 BP 105/58 L 07/26/22 20:45 Pulse Ox 99 07/26/22 20:50 O2 Del Method 07/26/22 17:44 Testing Laboratory Results 07/26/22 17:33 07/26/22 17:33 HCG, Quant 6128 mIU/ml 07/26/22 17:33 Blood Type O Negative 07/26/22 17:33 Antibody Screen NEGATIVE 07/26/22 17:33 07/26/22 07/26/22 19:48 17:38 POC Glucose (other) 103 H 108 H 07/26/22 17:33 HCG, Quant 6128
[2022-07-26] MEDS ORDERED: MIDAZOLAM HCL 1 MG/ML 2ML VIAL ONE (21:23)
[2022-07-26] MEDS ORDERED: fentaNYL citrate 100 MCG/2 ML VIAL ONE (21:23)
[2022-07-26] MEDS ORDERED: ALBUTEROL HFA INHALER 8.5 GM INH ONE (21:23)
[2022-07-26] MEDS ORDERED: PROPOFOL IV EMULSION 10 MG/ML 20 ML VIAL IV ONE (21:25)
[2022-07-26] MEDS ORDERED: LIDOCAINE 2% 2 ML VIAL/AMP(20MG/ML) INFIL ONE (21:25)
[2022-07-26] MEDS ORDERED: ceFAZolin 330 MG/ML 1 GM VIAL ONE ×2 (21:48→21:53)
[2022-07-26] MEDS ORDERED: DEXAMETHASONE SOD INJ 4 MG/ML VIAL ONE (21:53)
[2022-07-26] MEDS ORDERED: OXYTOCIN 10 UNITS/ML 10ML VIAL ONE (21:53)
[2022-07-26] MEDS ORDERED: ONDANSETRON INJ 2 MG/ML 2 ML VIAL ONE (21:53)
--- NOTE | 2022-07-26 22:10 | Post Operative Brief Note ---
PG Immediate Post Op with CF Date of Surgery July 26, 2022 Pre & Post Diagnosis Operation Date: 07/26/22 21:30 <No data on this case meets the specified criteria> I identified the patient and participated in the time-out.: Yes Procedure Dilation & Curettage Operation Date: 07/26/22 21:30 <No data on this case meets the specified criteria> Surgeon Jenae Boyle MD, FACOG Adult Health Clinical Nurse Specialist none Estimated Blood Loss 200 Findings Consistent with Post-Op Diagnosis large piece of placental tissue removed. uterus 16 week size Specimens Specimen Description: POC Anesthesia Type General Complications none Disposition Accompanied Patient To Recovery: Yes
--- NOTE | 2022-07-26 22:29 | Anesthesiology Progress Note ---
Date of Service July 26, 2022 Anesthesia Post Procedure Vital Signs Vital Signs: Temp Pulse Resp BP Pulse Ox O2 Del Method 07/26/22 22:25 36.4 C L 75 16 111/62 99 07/26/22 21:20 Room Air 07/26/22 20:50 70 26 H 99 07/26/22 20:45 73 17 100 07/26/22 20:45 105/58 L 07/26/22 20:40 65 17 100 07/26/22 20:32 102/61 07/26/22 20:32 64 12 100 07/26/22 20:30 98 07/26/22 20:25 100 07/26/22 20:11 92/62 L 07/26/22 20:11 75 13 98 07/26/22 20:10 67 15 100 07/26/22 20:05 98/50 L 07/26/22 20:05 65 18 100 07/26/22 20:00 56 L 20 100 07/26/22 20:00 95/52 L 07/26/22 19:55 59 L 13 100 07/26/22 19:55 94/42 L 07/26/22 19:50 61 22 100 07/26/22 19:50 88/47 L 07/26/22 19:48 99/50 L 07/26/22 19:48 55 L 22 100 07/26/22 19:45 65/48 L 07/26/22 19:45 59 L 18 100 07/26/22 19:43 52 L 16 94 07/26/22 19:43 83/46 L 07/26/22 19:40 50 L 23 100 07/26/22 19:40 76/36 L 07/26/22 19:37 45 L 21 100 07/26/22 19:37 55/25 L 07/26/22 19:34 66/27 L 07/26/22 19:34 100 07/26/22 19:31 68/39 L 07/26/22 19:31 98 07/26/22 19:30 99 07/26/22 19:20 100 07/26/22 19:16 99 07/26/22 19:16 105/58 L 07/26/22 19:12 100 07/26/22 19:00 108/59 L 07/26/22 18:53 84 20 100 07/26/22 18:50 77 18 100 07/26/22 18:40 73 20 99 07/26/22 18:30 70 17 100 07/26/22 18:30 101/59 L 07/26/22 18:20 71 15 100 07/26/22 18:10 88 26 H 07/26/22 18:00 70 18 100 07/26/22 18:00 114/65 07/26/22 17:52 101/77 07/26/22 17:52 109 H 22 98 07/26/22 17:50 99 H 19 100 07/26/22 17:40 63 20 99 07/26/22 17:37 66 23 96 07/26/22 19:17 70 18 105/58 L 100 07/26/22 17:44 73 20 99 Room Air 07/26/22 17:13 36.9 C 61 18 105/66 97 Room Air Transfer of Care Handoff Completed per policy Notes Mental Status: alert / awake / arousable Patient Amnestic to Procedure: Yes Nausea / Vomiting: adequately controlled Pain: adequately controlled Airway Patency, RR, SpO2: stable & adequate BP & HR: stable & adequate Hydration State: stable & adequate Anesthetic Complications: no major complications apparent and Pt Satisfied with anesthetic care Notes: The patient is awake and comfortable. Her vital signs are stable. Dr. Ledbetter has ordered for her to receive one unit PRBC to be transfused in recovery.
[2022-07-26] MEDS ORDERED: KETOROLAC 30 MG/ML VIAL IV PRN (22:39)
[2022-07-26] MEDS ORDERED: oxyCODONE/ACETAMINOPHEN 5mg/325mg TAB PO PRN (22:39)
--- NOTE | 2022-07-26 23:29 | Operative Report ---
PG Post Operative Report Pre & Post Diagnosis Operation Date: 07/26/22 21:30 Pre-Op Diagnosis: Missed with demise before 20 completed weeks of gestation Post-Op Diagnosis: Missed with demise before 20 completed weeks of gestation I identified the patient and participated in the time-out.: Yes Procedure Operation Date: 07/26/22 21:30 Actual Procedures p Dilation and Curettage(Not Applicable) - Jenae Boyle MD, FACOG Surgeon Jenae Boyle MD, FACOG Brake Lining Finisher none Estimated Blood Loss 200 Findings Consistent with Post-Op Diagnosis Specimens POC Drains none Anesthesia Type General Complications none Disposition Accompanied Patient To Recovery: Yes Indications Anjelica is a 32-year-old 4 para 2-0-2-2 female who presents to the emergency room with acute hemorrhage following a spontaneous miscarriage. Her last menstrual period was in March and at that point she assumed she was although she did not do a test at any time. Based on the timing of her LMP, she was anywhere from 16 to 20 weeks gestation at this time. she denies ever feeling any movement. She has had no bleeding until this morning whe n she had a very small amount. Following the bleeding she had mild cramping which continued to get worse over the day. She then started to bleed heavily soaking through 4 pads an hour. When she arrived in the emergency room she felt a lot of rectal pressure and delivered the fetus into the toilet. Gestational age could not be determined as the toilet automatically flushed the fetus prior to being able to retrieve it. Her bleeding continued to be significant with clots. Ultrasound revealed a 3.2 cm lining with a large amount of heterogeneous material in both the uterus and the cervix. On my exam there was at least 300 to 400 cc of clot and blood in the vagina. There was no obvious products of conception in the cervix in the emergency room therefore it was felt prudent to proceed to the OR for D&C possible D&E for retained tissue. During the course of her stay in the emergency room she became hypotensive and her hemoglobin dropped from 14 to 9 in 3 hours. As result 2 units of packed cells were typed and crossed with the intention to transfuse at least 1 unit during her surgery. Description of Procedure After the patient received adequate general anesthetic she was prepped and draped in usual sterile fashion after her bladder was emptied a weighted speculum space the vagina. At this time there is a 7 cm piece of placental tissue extruding from the cervix. This was removed with ring forceps. A ring forcep was used to grasp the anterior lip of the cervix. A banjo curette was then used to remove any other retained tissue in the uterine cavity. Dilute Pitocin was used as well to control the bleeding. The uterine cavity was then swept manually and there was no retained tissue present. At this point the uterus was now contracted down and was firm. Vaginal bleeding then became minimal. If it continues to be so for the next 15 minutes and therefore the case was terminated as the uterus also remained firm. Patient tolerated the procedure well was stable upon arrival in the ICU where she will receive 1 unit of packed cells. Estimated blood loss during the D&C was 200 cc. My estimate for total blood loss is at least 1200 cc. I attest to the content of the Intraoperative Record and any orders documented therein. Any exceptions are noted below. OB Procedure Charges 89412 PP Curettage (incomplete 2nd trimester )
[2022-07-27] MEDS ORDERED: OXYTOCIN 20 UNITS in LACTATED RINGER'S 1,000 ML IV SCH
[2022-07-27] MEDS: IBUPROFEN 600 MG TAB PO PRN ×3 (00:51→14:58)
[2022-07-27 04:49] LABS: Hematocrit (blood only) 29.8 % (34.1-44.9); Hemoglobin 10.4 g/dl (12.0-16.0)
--- NOTE | 2022-07-27 07:18 | Gynecologic Progress Note ---
Date of Service July 27, 2022 Assessment & Plan (1) Missed with demise before 20 completed weeks of gestation: Plan: stable post-op exam will have her follow up in the office in 4-6 weeks (2) Acute hemorrhage: Plan: Hgb stable at 10.4. will take iron daily for next 4 weeks Admission and Anticipated Discharge Date Admission Date: July 26, 2022 Subjective feeling much better this morning. minimal cramping. scant vaginal bleeding now. Review of Systems Review of Systems: All systems reviewed & are unremarkable except as noted in HPI & below Physical Exam Constitutional: WD/WN, vitals as above Psychiatric: A+Ox3, euthymic affect Genitourinary: OB Exam Abdomen: + fundal height (not palpable- non tender) no calf tenderness Results & Data ([facility]) Vital Signs (Past 12 Hours) Vital Signs Temp Pulse Pulse Resp BP BP Pulse Ox 07/27/22 03:25 98.1 F 70 18 98/65 L 95 07/27/22 02:00 98.2 F 61 18 98/63 L 98 07/27/22 01:00 98.4 F 72 20 98/64 L 98 07/27/22 00:45 98.2 F 77 20 97/63 L 97 07/27/22 00:15 98.1 F 66 20 92/63 L 98 07/26/22 23:45 97.9 F 67 20 90/60 L 100 07/26/22 23:45 07/26/22 23:45 97.9 F 67 20 90/60 L 100 07/26/22 23:15 68 18 128/65 98 07/26/22 23:05 73 14 122/71 98 07/26/22 22:55 72 15 114/68 98 07/26/22 22:55 97.5 F L 72 15 114/63 98 07/26/22 22:40 97.5 F L 66 16 103/51 L 100 07/26/22 22:45 72 12 102/60 100 07/26/22 22:35 76 14 107/57 L 99 07/26/22 22:25 77 18 111/62 97 07/26/22 22:15 97.5 F L 83 17 107/58 L 99 07/26/22 22:25 97.5 F L 75 16 111/62 99 07/26/22 21:20 07/26/22 20:50 70 26 H 99 07/26/22 20:45 73 17 100 07/26/22 20:45 105/58 L 07/26/22 20:40 65 17 100 07/26/22 20:32 102/61 07/26/22 20:32 64 12 100 07/26/22 20:30 98 07/26/22 20:25 100 07/26/22 20:11 92/62 L 07/26/22 20:11 75 13 98 07/26/22 20:10 67 15 100 07/26/22 20:05 98/50 L 07/26/22 20:05 65 18 100 07/26/22 20:00 56 L 20 100 07/26/22 20:00 95/52 L 07/26/22 19:55 59 L 13 100 07/26/22 19:55 94/42 L 07/26/22 19:50 61 22 100 07/26/22 19:50 88/47 L 07/26/22 19:48 99/50 L 07/26/22 19:48 55 L 22 100 07/26/22 19:45 65/48 L 07/26/22 19:45 59 L 18 100 07/26/22 19:43 52 L 16 94 07/26/22 19:43 83/46 L 07/26/22 19:40 50 L 23 100 07/26/22 19:40 76/36 L 07/26/22 19:37 45 L 21 100 07/26/22 19:37 55/25 L 07/26/22 19:34 66/27 L 07/26/22 19:34 100 07/26/22 19:31 68/39 L 07/26/22 19:31 98 07/26/22 19:30 99 07/26/22 19:20 100 07/26/22 19:16 99 07/26/22 19:16 105/58 L 07/26/22 19:17 70 18 105/58 L 100 O2 Del Method 07/27/22 03:25 Room Air 07/27/22 02:00 Room Air 07/27/22 01:00 07/27/22 00:45 07/27/22 00:15 07/26/22 23:45 07/26/22 23:45 Room Air 07/26/22 23:45 Room Air 11/20/22 23:15 Room Air 07/26/22 23:05 Room Air 07/26/22 22:55 Room Air 07/26/22 22:55 07/26/22 22:40 07/26/22 22:45 Room Air 07/26/22 22:35 Room Air 07/26/22 22:25 Room Air 07/26/22 22:15 Room Air 07/26/22 22:25 07/26/22 21:20 Room Air 07/26/22 20:50 07/26/22 20:45 07/26/22 20:45 07/26/22 20:40 07/26/22 20:32 07/26/22 20:32 07/26/22 20:30 07/26/22 20:25 07/26/22 20:11 07/26/22 20:11 07/26/22 20:10 07/26/22 20:05 07/26/22 20:05 07/26/22 20:00 07/26/22 20:00 07/26/22 19:55 07/26/22 19:55 07/26/22 19:50 07/26/22 19:50 07/26/22 19:48 07/26/22 19:48 07/26/22 19:45 07/26/22 19:45 07/26/22 19:43 07/26/22 19:43 07/26/22 19:40 07/26/22 19:40 07/26/22 19:37 07/26/22 19:37 07/26/22 19:34 07/26/22 19:34 07/26/22 19:31 07/26/22 19:31 07/26/22 19:30 07/26/22 19:20 07/26/22 19:16 07/26/22 19:16 07/26/22 19:17 PG Care Time/CCT Total # of Minutes Spent Total Time Spent with Patient: Total time spent is greater than 50% in coordination of care (as documented) at patient's floor/unit and/or counseling patient: Coding Level of Care Code 11004 Subseq Obs Care Lvl 2 Diagnoses Missed with demise before 20 completed weeks of gestation O02.1 Acute hemorrhage R58
--- NOTE | 2022-07-27 09:06 | Discharge Summary (DS) ---
DATE OF OBSERVATION: 07/27/2022. PRINCIPAL DIAGNOSIS: Second trimester incomplete with acute massive hemorrhage and hypotension. PRINCIPAL PROCEDURE: Exam under anesthesia and D and C for products of conception. HISTORY: The patient is a 32-year-old 4, para 2-0-2-2, female who presents with a last normal menstrual period in March of this year. Since she was and therefore did not do a test because her periods have always been predictable, however, she has never felt any movement and no bleeding until the morning of her admission. She has small amount followed by cramping. Later on evening, she developed heavy bleeding and came to the Emergency Room for evaluation. She was soaking through a regular pad every 20 minutes prior to coming to the Emergency Room. Upon arrival in the Emergency Room, she passed the fetus and clots into the toilet. The products of conception could not be retrieved because the automatic flushing mechanism on the toilet was then functioning; however, she continued to have significant bleeding. Her hemoglobin on admission was 14 and dropped to 9 over 3 hours. She also had approximately 300-400 mL of clot and blood in the vaginal vault. Because of all the bleeding and/or hypertensive status, she was typed and crossed for 2 units for which she got 1 unit after the surgery. She was taken to the OR and was noted to have a large piece of placenta extruding from the cervix, which was removed with ring forceps followed by a sharp curettage of the endometrial cavity, at which point there was no retained tissue identified. Bleeding at this point was excellent. She was then observed overnight for any additional bleeding. She did receive that 1 unit of packed cells and is feeling much better. Again, bleeding has remained scant. Cramping is minimal. Hemoglobin 2 hours past the 1 unit of blood was 10.4. The patient will be discharged in good condition with followup in the office in 4 to 6 weeks. She is to call for temperature of 101 degrees or higher, heavy vaginal bleeding, abdominal pain, severe cramping or any other concerns. We will have her take iron daily for the next 4 weeks prior to her followup visit. Job ID: [id number] [facility]
== END 2022-07-27 15:45 | disposition home or self-care (01) ==
LOC: ED 17:11 → OR 21:20 → 4E2 21:20